=== PATIENT | female | born 1945 | race Caucasian/White ===

== ENCOUNTER 2017-03-14 07:49 | Day surgery (SDC) | payer MEDICARE ==
[~2017-03-14 07:49] MED LIST: Midazolam 1 MG/ML 2 ML SDV ONE; Propofol 200 MG/20 ML SDV ONE; fentaNYL 100 MCG/2 ML SDV ONE
[2017-03-14] MEDS ORDERED: Dextrose 5%-Lactated Ringers 1,000 ML IV SCH (08:00)
--- NOTE | 2017-03-15 15:12 | OR ---
DATE OF PROCEDURE: 03/14/2017 PREOPERATIVE DIAGNOSIS: History of colonic polyps. POSTOPERATIVE DIAGNOSIS: Normal colonoscopic examination. OPERATIVE PROCEDURE: Flexible colonoscopy. ANESTHESIA: IV sedation. INDICATION FOR PROCEDURE: This is a 71-year-old status post history of removal of some colonic adenomatous polyps in 2009, and she will follow up colonoscopy with biopsies and/or polypectomy as indicated. Potential risks including bleeding and perforation were discussed, and the patient wishes to proceed. DETAILS OF PROCEDURE: The patient was taken to the operating room and placed in a left lateral decubitus position. IV sedation was administered, after which the initial digital rectal exam was performed and was unremarkable. Colonoscope was passed into the rectum with retroflexion revealing uncomplicated hemorrhoidal columns. The scope was eventually passed to the cecum. The prep was fairly good with there being some liquid stool present to that level. No additional abnormalities were noted specifically, there was no diverticula, no areas of colitis and no polyps or other signs of neoplasia. The scope was then withdrawn. The above findings reconfirmed and the procedure was then concluded. The patient was taken to the recovery room in satisfactory condition. Given the history of colon polyps, the patient should have a repeat colonoscopy performed in 5 years. Luis A Day MD /[id number]
== END 2017-03-14 11:46 | disposition home or self-care (01) ==
LOC: JP.SDS 07:49
PROVIDERS: ATTEND Surgery
DX: Z12.11 Encounter for screening for malignant neoplasm of colon (principal); J44.9 Chronic obstructive pulmonary disease, unspecified; F32.9 Major depressive disorder, single episode, unspecified; E78.00 Pure hypercholesterolemia, unspecified; I10 Essential (primary) hypertension; Z86.010 Personal history of colon polyps; Z88.0 Allergy status to penicillin; Z88.1 Allergy status to other antibiotic agents; Z88.8 Allergy status to other drugs, medicaments and biological substances; Z87.891 Personal history of nicotine dependence; Z98.890 Other specified postprocedural states
CPT/HCPCS: G0105; J2250; J2704; J3010; J7042

== ENCOUNTER 2018-01-09 06:30 | Day surgery (SDC) | payer MEDICARE ==
[2018-01-09] MEDS ORDERED: Midazolam 1 MG/ML 2 ML SDV ONE (07:00)
[2018-01-09] MEDS ORDERED: Propofol 200 MG/20 ML SDV ONE (07:00)
[2018-01-09] MEDS ORDERED: fentaNYL 100 MCG/2 ML SDV ONE (07:00)
[2018-01-09] MEDS ORDERED: Dextrose 5%-Lactated Ringers 1,000 ML IV SCH (07:15)
[2018-01-09] MEDS ORDERED: Glycopyrrolate 0.2 MG/ML 2 ML SDV IVPUSH ONE (08:00)
--- NOTE | 2018-01-16 07:40 | OR ---
DATE OF PROCEDURE: 01/09/2018 PREOPERATIVE DIAGNOSIS: Probable gastroesophageal reflux disease. POSTOPERATIVE DIAGNOSES: 1. 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 2. Mild antral gastritis. OPERATIVE PROCEDURES: Upper GI endoscopy with biopsies of: 1. Antrum for CLOtest. 2. Esophagogastric junction for histologic evaluation. ANESTHESIA: IV sedation. INDICATION FOR PROCEDURE: This is a 72-year-old female presenting with longstanding gastroesophageal reflux symptoms. She has been on omeprazole 20 mg for 3 years. Recently, she has gone up to a b.i.d. dosing pattern, but is still having quite a bit of active reflux symptoms. Plan is to proceed with an upper GI endoscopy with biopsies as indicated. Potential risks including bleeding and perforation were discussed, and the patient wishes to proceed. DETAILS OF PROCEDURE: The patient was taken to the operating room and placed in a left lateral decubitus position. IV sedation was administered, after which the upper GI endoscope was passed orally through the length of the esophagus and into the stomach with retroflexion view of the fundus, and thereafter through the pyloric channel and into the junction of the third and fourth portions of the duodenum. Findings included a normal hypopharynx, larynx, upper esophageal sphincter, and esophageal body. As one approached the distal esophagus, the patient was noted to have a quite large hiatal hernia measuring around 5 cm. This was associated with active gastroesophageal reflux disease with there being 2 linear erosions extending up into the esophagus. 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 There was no stricturing, plaquing, or gross evidence of neoplasia per se. Within the stomach, there was some mild redness in the antrum, otherwise, the remainder of the gastric and duodenal exams were unremarkable. At this point, biopsies were obtained from the antrum to establish the patient's H. pylori status by means of CLOtest and then multiple biopsies from the area of esophagogastric junction targeting areas of the ulceration and columnar mucosa formation. Minimal bleeding from the biopsy sites was seen, and the procedure then concluded. The patient, at this point, has been on fairly maximal medical therapy, i.e. omeprazole 40 mg a day. We will see her back next Monday to discuss treatment options. The patient would appear to be a reasonable candidate for surgical antireflux procedure. Luis A Day MD /[id number]
== END 2018-01-09 10:40 | disposition home or self-care (01) ==
LOC: JP.SDS 06:30
PROVIDERS: ATTEND Surgery
DX: K21.0 Gastro-esophageal reflux disease with esophagitis (principal); K31.89 Other diseases of stomach and duodenum; K44.9 Diaphragmatic hernia without obstruction or gangrene; I10 Essential (primary) hypertension; J44.9 Chronic obstructive pulmonary disease, unspecified; E66.9 Obesity, unspecified; E78.5 Hyperlipidemia, unspecified; F32.9 Major depressive disorder, single episode, unspecified
CPT/HCPCS: 43239; 87081; 88305; J2250; J2704; J3010; J3490; J7042

== ENCOUNTER 2019-12-04 13:46 | Inpatient (IN) | payer MEDICARE ==
--- NOTE | 2019-12-04 14:02 | EDM.PDOC ---
ED HPI GENERAL MEDICAL PROBLEM - General Chief Complaint: General Stated Complaint: FALL VIA [place]TH Time Seen by Provider: 12/04/19 14:02 Source of Information: Reports: Patient, EMS, Family History Limitations: Reports: No Limitations - History of Present Illness INITIAL COMMENTS - FREE TEXT/NARRATIVE: [place] a [place] about 1/2 hour. She began to feel sob. She has slight rt sided pleurtic chest pain. She is feeling much better now. She had surgery for a hiatal hernia 2-3 weeks ago. She has been very tired out since that time. Onset: Today, Sudden Duration: Hour(s): Location: Reports: Chest, Other (pt is feeling liteheaded. ) Associated Symptoms: Reports: Chest Pain, Shortness of Breath, Syncope, Weakness - Related Data Allergies Allergy/AdvReac Type Severity Reaction Status Date / Time amoxicillin Allergy Rash Verified 12/04/19 13:56 niacin Allergy Swelling Verified 12/04/19 13:56 penicillin V Allergy Itching Verified 12/04/19 13:56 Home Meds: Home Meds HCTZ/Triamterene [Maxzide 25-37.5 MG] 1 each PO DAILY 03/10/17 [History] Multivitamin with Minerals [Multiple Vitamin] 1 tab PO DAILY 03/10/17 [History] Nicotine Polacrilex [Nicotine Gum] 2 mg BC ASDIRECTED PRN 03/10/17 [History] atorvaSTATin [Lipitor] 20 mg PO DAILY 03/10/17 [History] amLODIPine [Norvasc] 2.5 mg PO DAILY 01/05/18 [History] Budesonide [Pulmicort] 1 inh INH BID 12/04/19 [History] Ipratropium/Albuterol Sulfate [Iprat-Albut 0.5-3(2.5) mg/3 ml] 3 ml INH Q4H PRN 12/04/19 [History] Past Medical History HEENT History: Reports: Allergic Rhinitis, Impaired Vision Cardiovascular History: Reports: High Cholesterol, Hypertension Respiratory History: Reports: COPD Gastrointestinal History: Reports: Colon Polyp, GERD [employer] History: Reports: Musculoskeletal History: Reports: Fracture, Osteoarthritis Neurological History: Reports: Migraines Psychiatric History: Reports: Anxiety, Depression, Mood Swings, Panic Attack Endocrine/Metabolic History: Reports: Obesity/BMI 30+ - Infectious Disease History Infectious Disease History: Reports: Chicken Pox, Measles, Mumps - Past Surgical History HEENT Surgical History: Reports: Tonsillectomy, Other (See Below) Other HEENT Surgeries/Procedures: eye surgery as a child Cardiovascular Surgical History: Reports: None Respiratory Surgical History: Reports: None GI Surgical History: Reports: Colonoscopy, Polypectomy Neurological Surgical History: Reports: None Musculoskeletal Surgical History: Reports: None Social & Family History - Family History Family Medical History: Noncontributory - Caffeine Use Caffeine Use: Reports: Coffee ED ROS GENERAL - Review of Systems Review Of Systems: See Below Constitutional: Reports: Weakness HEENT: Reports: No Symptoms Respiratory: Reports: Shortness of Breath, Cough Cardiovascular: Reports: Other (pleuritic chest pain on the rt. ) Endocrine: Reports: No Symptoms GI/Abdominal: Reports: No Symptoms : Reports: No Symptoms Musculoskeletal: Reports: No Symptoms Skin: Reports: No Symptoms Neurological: Reports: Syncope Psychiatric: Reports: Anxiety ED EXAM, GENERAL - Physical Exam Exam: See Below Free Text/Narrative:: pt arrived after having a syncopal episode at the [facility]. She felt warm and got lite headed. She passed out and hit the back of her head. She is alert and seemes to be well mentally at this point. She states prior to passing out she felt very sob snd she had some pain with deep breathing on the rt. Exam Limited By: No Limitations General Appearance: Alert, Anxious, Mild Distress, Other (pt is having a rapid heart beat. ) Ears: Normal TMs Nose: Normal Inspection Throat/Mouth: Normal Inspection Head: Atraumatic Neck: Normal Inspection Respiratory/Chest: Other Cardiovascular: Regular Rate, Rhythm GI/Abdominal: Soft, Non-Tender (Female) Exam: Deferred Rectal (Female) Exam: Deferred Back Exam: Normal Inspection Extremities: Other (mild tenderness in the rt leg posteriorly behind the knee. ) Neurological: Alert, Oriented, Normal Cognition Psychiatric: Normal Affect Course - Vital Signs Last Recorded V/S: Last Vital Signs Temp 36.2 C 12/04/19 14:00 Pulse 108 H 12/04/19 17:12 Resp 16 12/04/19 17:12 BP 117/70 12/04/19 17:12 Pulse Ox 98 12/04/19 17:12 - Orders/Labs/Meds Orders: Active Orders 24 hr Category Date Time Status EKG Documentation Completion [RC] ASDIRECTED Care 12/04/19 14:02 Active Chest 1V Frontal [CR] Stat Exams 12/04/19 14:00 Taken Heparin Sodium/D5W [Heparin 25,000 Units in D5W 500 ML] Med 12/04/19 17:15 Active 25,000 units in 500 ml IV TITRATE Iopamidol [Isovue-370 (76%)] Med 12/04/19 15:15 Active 64 ml IV . DIRECTED Sodium Chloride 0.9% [Normal Saline] 1,000 ml Med 12/04/19 14:15 Active IV ASDIRECTED Sodium Chloride 0.9% [Normal Saline] 89 ml Med 12/04/19 15:15 Active IV ASDIRECTED EKG 12 Lead [EK] Routine Ther 12/04/19 14:02 Ordered Medication Orders Sodium Chloride (Normal Saline) 1,000 mls @ 999 mls/hr IV ASDIRECTED [facility] Last Admin: 12/04/19 14:23 Dose: 999 mls/hr Documented by: VI Sodium Chloride (Normal Saline) 89 mls @ 3 mls/sec IV ASDIRECTED [facility] Last Admin: 12/04/19 15:52 Dose: 3 mls/sec Documented by: Admin: 12/04/19 15:51 Dose: 3 mls/sec Documented by: MARIBEL Heparin Sodium/Dextrose (Heparin 25,000 Units In D5w 500 Ml) 25,000 units in 500 mls @ 0 mls/hr IV TITRATE RAMANA; Protocol Iopamidol (Isovue-370 (76%)) 64 ml IV . DIRECTED [facility] Last Admin: 12/04/19 15:51 Dose: 64 ml Documented by: MARIBEL Labs: Laboratory Tests 12/04/19 12/04/19 12/04/19 Range/Units 14:10 14:23 14:23 WBC 12.1 H (4.5-11.0) K/uL RBC 4.54 (3.30-5.50) M/uL Hgb 13.4 (12.0-15.0) g/dL Hct 42.4 (36.0-48.0) % MCV 93 (80-98) fL MCH 30 (27-31) pg MCHC 32 (32-36) % Plt Count 284 (150-400) K/uL Neut % (Auto) 72 H (36-66) % Lymph % (Auto) 16 L (24-44) % Dougherty % (Auto) 10 H (2-6) % Eos % (Auto) 1 L (2-4) % Baso % (Auto) 0 (0-1) % APTT 27.8 (27.0-36.0) sec D-Dimer, Quantitative > 5000 H (0.0-400.0) ng/mL Sodium (140-148) mmol/L Potassium (3.6-5.2) mmol/L Chloride (100-108) mmol/L Carbon Dioxide (21-32) mmol/L Anion Gap (5.0-14.0) mmol/L BUN (7-18) mg/dL Creatinine (0.6-1.0) mg/dL Est Cr Clr Drug Dosing mL/min Estimated GFR (MDRD) (>60) Glucose (74-106) mg/dL Calcium (8.5-10.1) mg/dL Total Bilirubin (0.2-1.0) mg/dL AST (15-37) U/L ALT (12-78) U/L Alkaline Phosphatase (46-116) U/L Troponin I (0.000-0.056) ng/mL Total Protein (6.4-8.2) g/dL Albumin (3.4-5.0) g/dL Globulin (2.3-3.5) g/dL Albumin/Globulin Ratio (1.2-2.2) Urine Color (YELLOW) Urine Appearance (CLEAR) Urine pH (5.0-8.0) Ur Specific [place] (1.008-1.030) Urine Protein (NEGATIVE) mg/dL Urine Glucose (UA) (NEGATIVE) mg/dL Urine Ketones (NEGATIVE) mg/dL Urine Occult Blood (NEGATIVE) Urine Nitrite (NEGATIVE) Urine Bilirubin (NEGATIVE) Urine Urobilinogen (0.2-1.0) EU/dL Ur Leukocyte Esterase (NEGATIVE) Urine RBC (0-5) Urine WBC (0-5) Ur Epithelial Cells Urine Bacteria 12/04/19 12/04/19 12/04/19 Range/Units 14:23 14:23 15:22 WBC (4.5-11.0) K/uL RBC (3.30-5.50) M/uL Hgb (12.0-15.0) g/dL Hct (36.0-48.0) % MCV (80-98) fL MCH (27-31) pg MCHC (32-36) % Plt Count (150-400) K/uL Neut % (Auto) (36-66) % Lymph % (Auto) (24-44) % Dougherty % (Auto) (2-6) % Eos % (Auto) (2-4) % Baso % (Auto) (0-1) % APTT (27.0-36.0) sec D-Dimer, Quantitative (0.0-400.0) ng/mL Sodium 137 L (140-148) mmol/L Potassium 3.6 (3.6-5.2) mmol/L Chloride 100 (100-108) mmol/L Carbon Dioxide 29 (21-32) mmol/L Anion Gap 11.6 (5.0-14.0) mmol/L BUN 20 H (7-18) mg/dL Creatinine 1.1 H (0.6-1.0) mg/dL Est Cr Clr Drug Dosing 36.02 mL/min Estimated GFR (MDRD) 49 L (>60) Glucose 116 H (74-106) mg/dL Calcium 8.9 (8.5-10.1) mg/dL Total Bilirubin 0.3 (0.2-1.0) mg/dL AST 38 H (15-37) U/L ALT 59 (12-78) U/L Alkaline Phosphatase 172 H (46-116) U/L Troponin I 0.519 H* (0.000-0.056) ng/mL Total Protein 7.5 (6.4-8.2) g/dL Albumin 3.2 L (3.4-5.0) g/dL Globulin 4.3 H (2.3-3.5) g/dL Albumin/Globulin Ratio 0.7 L (1.2-2.2) Urine Color Yellow (YELLOW) Urine Appearance Clear (CLEAR) Urine pH 7.0 (5.0-8.0) Ur Specific [place] 1.020 (1.008-1.030) Urine Protein Negative (NEGATIVE) mg/dL Urine Glucose (UA) Negative (NEGATIVE) mg/dL Urine Ketones Negative (NEGATIVE) mg/dL Urine Occult Blood Negative (NEGATIVE) Urine Nitrite Negative (NEGATIVE) Urine Bilirubin Negative (NEGATIVE) Urine Urobilinogen 0.2 (0.2-1.0) EU/dL Ur Leukocyte Esterase Negative (NEGATIVE) Urine RBC Not seen (0-5) Urine WBC Not seen (0-5) Ur Epithelial Cells Rare Urine Bacteria Not seen Meds: Medications Generic Name Dose Route Start Last Admin Trade Name Freq PRN Reason Stop Dose Admin Sodium Chloride 1,000 mls @ 999 mls/hr 12/04/19 14:15 12/04/19 14:23 Normal Saline IV 999 mls/hr ASDIRECTED RAMANA Administration Sodium Chloride 89 mls @ 3 mls/sec 12/04/19 15:15 12/04/19 15:52 Normal Saline IV 3 mls/sec ASDIRECTED RAMANA Administration Heparin Sodium/Dextrose 25,000 units in 500 mls @ 0 mls/hr 12/04/19 17:15 Heparin 25,000 Units In D5w 500 Ml IV TITRATE RAMANA Protocol KVO Iopamidol 64 ml 12/04/19 15:15 12/04/19 15:51 Isovue-370 (76%) IV 64 ml . DIRECTED RAMANA Administration Discontinued Medications Generic Name Dose Route Start Last Admin Trade Name Freq PRN Reason Stop Dose Admin Heparin Sodium (Porcine) 5,000 units 12/04/19 16:59 12/04/19 17:14 Heparin Sodium IVPUSH 12/04/19 17:00 5,000 units ONETIME ONE Administration Sodium Chloride 10 ml 12/04/19 15:08 12/04/19 15:51 Saline Flush FLUSH 12/04/19 15:09 10 ml ONETIME ONE Administration - Re-Assessments/Exams Free Text/Narrative Re-Assessment/Exam: 12/04/19 16:51 pt arrived with a history of having a syncopal episode at home and she hit the back of her head. She has been alert and appropiate since that time. She has been sob and has had some mld chest opain on the rt when she takes a deep breath. She has o2 sats of 93-95. She had a normal ekg except she has been tacy with a heart rate in the 120 range-- sinus. She had a angio of the chest which showed clots in both main coronary arteries and a saddle embolus. She has been stable. 07/08/20 16:54 Her heart rate has now come down to 108. She has no further pain or feeling of sob. Her trop was elevated to greater than .5. Pulmonlogy in [place] was consulted at 5 pm as to whether she should be transfered or cared for locally. A heparin drip was started. 12/04/19 17:20 Dr Matson felt that the pt could be monitored here since she has been very stable. The case was discussed with Dr Alejo. Heparin was started. Departure - Departure Time of Disposition: 17:21 Disposition: Admitted As Inpatient 67 Condition: Fair Clinical Impression: Pulmonary embolism, Saddle embolus - Discharge Information Referrals: PCP,None [Primary Care Provider] - Forms: ED Department Discharge Care Plan Goals: admit to Dr Alejo Sepsis Event Note (ED) - Focused Exam Vital Signs: Vital Signs Temp Pulse Resp BP Pulse Ox 12/04/19 17:12 108 H 16 117/70 98 12/04/19 16:22 105 H 18 124/59 L 96 12/04/19 15:50 108 H 12 130/78 92 L 12/04/19 14:47 111 H 21 H 130/78 94 L 12/04/19 14:00 36.2 C 121 H 20 121/61 94 L - My Orders Last 24 Hours: My Active Orders 12/04/19 14:00 Chest 1V Frontal [CR] Stat 12/04/19 14:02 EKG Documentation Completion [RC] ASDIRECTED EKG 12 Lead [EK] Routine 12/04/19 14:15 Sodium Chloride 0.9% [Normal Saline] 1,000 ml IV ASDIRECTED 12/04/19 15:15 Iopamidol [Isovue-370 (76%)] 64 ml IV . DIRECTED Sodium Chloride 0.9% [Normal Saline] 89 ml IV ASDIRECTED - Assessment/Plan Last 24 Hours: My Active Orders 12/04/19 14:00 Chest 1V Frontal [CR] Stat 12/04/19 14:02 EKG Documentation Completion [RC] ASDIRECTED EKG 12 Lead [EK] Routine 12/04/19 14:15 Sodium Chloride 0.9% [Normal Saline] 1,000 ml IV ASDIRECTED 12/04/19 15:15 Iopamidol [Isovue-370 (76%)] 64 ml IV . DIRECTED Sodium Chloride 0.9% [Normal Saline] 89 ml IV ASDIRECTED
[2019-12-04] MEDS ORDERED: Sodium Chloride 0.9% 1,000 ML IV SCH (14:15)
[2019-12-04] MEDS ORDERED: Sodium Chloride 0.9% 10 ML Syringe FLUSH ONE (15:08)
[2019-12-04] MEDS ORDERED: Iopamidol 755 Mg/ML 100 ML Bottle IV SCH (15:15)
--- NOTE | 2019-12-04 16:49 | CRLCT ---
INDICATION: Shortness of breath and elevated D-dimer. COMPARISON: Chest radiograph 12/04/2019. TECHNIQUE: CTA of the chest with 64 cc of Isovue 370 IV contrast. Coronal and sagittal reconstructions. 3D post processing was performed. FINDINGS: Normal heart size conventional 3 vessel aortic arch. Normal caliber thoracic aorta and central pulmonary arteries. Coronary artery and aortic vascular calcifications. No pericardial effusion. No thoracic lymphadenopathy. There are large pulmonary emboli within the main pulmonary arteries bilaterally which extend into the segmental and subsegmental pulmonary artery branches of all lobes. There is also a thin saddle embolus straddling the pulmonary arteries (series 4, image 45). There is flattening of the interventricular septum and mild enlargement of the right ventricle. The artery/LV ratio measures 1.1 compatible with right heart strain. No focal consolidation, pleural effusion, or pneumothorax. Mild left basilar atelectasis. No evidence of a developing pulmonary infarct. 2 mm noncalcified pulmonary nodule in the anterior right upper lobe (series 5, image 25). 3 mm noncalcified pulmonary nodule in the anterior right middle lobe (image 70). The visualized thyroid gland is normal in appearance. Partially visualized somewhat ill-defined 2.7 x 3.1 cm low-attenuation lesion in the left kidney (series 4, image 140). Degenerative changes of the spine. IMPRESSION: 1. Positive for acute pulmonary embolism. There large bilateral pulmonary emboli within the main pulmonary arteries extending into the segmental and subsegmental pulmonary artery branches of all lobes. There is also a thin saddle embolus. Findings discussed with nurse practitioner student Veronica Smith at 4:43 p.m. on 12/04/2019 who will relay the results to the ordering provider Marilyn Fernandez. 2. There is evidence of right heart strain. RV/LV ratio measures 1.1. 3. No developing pulmonary infarcts. 4. Few small noncalcified pulmonary nodules measuring up to 3 mm. Please see follow-up guidelines below. 5. Partially visualized 2.7 x 3.1 cm low-attenuation lesion in the left kidney is indeterminate. Recommend further evaluation with renal ultrasound to exclude a solid mass. [employer] GUIDELINES - SOLID NODULES: MULTIPLE LOW RISK - nodule less than 6 mm: No routine follow-up. - nodule 6-8 mm: CT at 3-6 months, then consider CT at 18-24 months. - nodule greater than 8 mm: CT at 3-6 months, then consider CT at 18-24 months. MULTIPLE HIGH RISK - nodule less than 6 mm: Optional CT at 12 months. - nodule 6-8 mm: CT at 3-6 months, then at 18-24 months. - nodule greater than 8 mm: CT at 3-6 months, then at 18-24 months. Please note that all CT scans at this facility use dose modulation, iterative reconstruction, and/or weight-based dosing when appropriate to reduce radiation dose to as low as reasonably achievable. Dictated by Estefanía Mcallister MD @ Dec 04 2019 4:32PM Signed by Dr. Estefanía Mcallister @ Dec 04 2019 4:49PM
[2019-12-04] MEDS ORDERED: Heparin Sodium 5,000 Units/ML Vial IVPUSH ONE (16:59)
[2019-12-04] MEDS: Heparin Sodium/D5W 25,000 UNITS/500 ML BAG IV SCH (17:21)
--- NOTE | 2019-12-04 17:23 | PCM.HP.2 ---
H&P History of Present Illness - General Date of Service: 12/04/19 Admit Problem/Dx: Admission Diagnosis/Problem Admission Diagnosis/Problem Pulmonary embolism Source of Information: Patient, Family, Old Records, Provider, RN Notes Reviewed History Limitations: Reports: No Limitations - History of Present Illness Initial Comments - Free Text/Narative: Ms. Christine is a 74-year-old woman who was admitted through the emergency department with weakness, syncope, shortness of breath, secondary to bilateral pulmonary emboli. She underwent surgery approximately 3 weeks ago for reflux with a Billy fundoplication. Over the last week and a half she is noted progressive symptoms of shortness of breath. Today she experienced some symptoms of chest pain associated with shortness of breath and lightheadedness, with a syncopal episode. CT scan shows a large amount of clot both lungs, involving both pulmonary arteries and with a saddle embolism appearance. She has a mild resting tachycardia, otherwise she has been hemodynamically stable and oxygenating well on room air. Findings were reviewed with mechanic general operational test on- call who without felt that she could be anticoagulated and safely kept here for the time being. She denies any previous history of deep vein thrombosis or pulmonary emboli. - Related Data Allergies/Adverse Reactions: Allergies Allergy/AdvReac Type Severity Reaction Status Date / Time amoxicillin Allergy Rash Verified 12/04/19 13:56 niacin Allergy Swelling Verified 12/04/19 13:56 penicillin V Allergy Itching Verified 12/04/19 13:56 Home Medications: Home Meds HCTZ/Triamterene [Maxzide 25-37.5 MG] 1 each PO DAILY 03/10/17 [History] Multivitamin with Minerals [Multiple Vitamin] 1 tab PO DAILY 03/10/17 [History] Nicotine Polacrilex [Nicotine Gum] 2 mg BC ASDIRECTED PRN 03/10/17 [History] atorvaSTATin [Lipitor] 20 mg PO DAILY 03/10/17 [History] amLODIPine [Norvasc] 2.5 mg PO DAILY 01/05/18 [History] Budesonide [Pulmicort] 1 inh INH BID 12/04/19 [History] Ipratropium/Albuterol Sulfate [Iprat-Albut 0.5-3(2.5) mg/3 ml] 3 ml INH Q4H PRN 12/04/19 [History] Past Medical History HEENT History: Reports: Allergic Rhinitis, Impaired Vision Cardiovascular History: Reports: High Cholesterol, Hypertension Respiratory History: Reports: COPD Gastrointestinal History: Reports: Colon Polyp, GERD HAND TWISTER History: Reports: Musculoskeletal History: Reports: Fracture, Osteoarthritis Neurological History: Reports: Migraines Psychiatric History: Reports: Anxiety, Depression, Mood Swings, Panic Attack Endocrine/Metabolic History: Reports: Obesity/BMI 30+ - Infectious Disease History Infectious Disease History: Reports: Chicken Pox, Measles, Mumps - Past Surgical History HEENT Surgical History: Reports: Tonsillectomy, Other (See Below) Other HEENT Surgeries/Procedures: eye surgery as a child Cardiovascular Surgical History: Reports: None Respiratory Surgical History: Reports: None GI Surgical History: Reports: Colonoscopy, Polypectomy Neurological Surgical History: Reports: None Musculoskeletal Surgical History: Reports: None Social & Family History - Family History Family Medical History: Noncontributory - Tobacco Use Smoking Status *Q: Former Smoker Used Tobacco, but Quit: Yes Month/Year Tobacco Last Used: 5 - Caffeine Use Caffeine Use: Reports: Coffee H&P Review of Systems - Review of Systems: Review Of Systems: See Below General: Reports: Weakness, Fatigue. Denies: Fever, Chills HEENT: Reports: No Symptoms Pulmonary: Reports: Shortness of Breath. Denies: Wheezing, Pleuritic Chest Pain, Cough, Sputum, Hemoptysis Cardiovascular: Reports: Dyspnea on Exertion, Lightheadedness, Syncope. Denies: Chest Pain, Palpitations, Orthopnea, PND, Edema Gastrointestinal: Reports: No Symptoms Genitourinary: Reports: No Symptoms Musculoskeletal: Reports: No Symptoms Skin: Reports: No Symptoms Psychiatric: Reports: No Symptoms Neurological: Reports: No Symptoms Hematologic/Lymphatic: Reports: No Symptoms Immunologic: Reports: No Symptoms Exam - Exam Exam: See Below - Vital Signs Vital Signs: Last Vital Signs Temp 97.1 F 12/04/19 14:00 Pulse 108 H 12/04/19 17:12 Resp 16 12/04/19 17:12 BP 117/70 12/04/19 17:12 Pulse Ox 98 12/04/19 17:12 Weight: 166 lb - Exam Quality Assessment: DVT Prophylaxis General: Alert, Oriented, Cooperative, Moderate Distress HEENT: Conjunctiva Clear, Hearing Intact, Mucosa Moist & [place], Normal Nasal Septum, Posterior Pharynx Clear, Pupils Equal Neck: Supple, Trachea Midline, +2 Carotid Pulse wo Bruit Lungs: Clear to Auscultation, Normal Respiratory Effort, Decreased Breath Sounds Cardiovascular: Regular Rate, Normal S1, Normal S2, Tachycardia. No: Systolic Murmur, Diastolic Murmur GI/Abdominal Exam: Soft, Non-Tender, No Organomegaly, No Distention Back Exam: Normal Inspection, Full Range of Motion Extremities: Non-Tender, No Pedal Edema Skin: Warm, Dry, Intact Neurological: Cranial Nerves Intact, Strength Equal Bilateral, Normal Speech, Normal Tone, Sensation Intact. No: Focal Deficit Neuro Extensive - Mental Status: Alert, Oriented x3, Normal Mood/Affect, Normal Cognition, Memory Intact - Patient Data Lab Results Last 24 hrs: Laboratory Results - last 24 hr 12/04/19 12/04/19 12/04/19 Range/Units 14:10 14:23 14:23 WBC 12.1 H (4.5-11.0) K/uL RBC 4.54 (3.30-5.50) M/uL Hgb 13.4 (12.0-15.0) g/dL Hct 42.4 (36.0-48.0) % MCV 93 (80-98) fL MCH 30 (27-31) pg MCHC 32 (32-36) % Plt Count 284 (150-400) K/uL Neut % (Auto) 72 H (36-66) % Lymph % (Auto) 16 L (24-44) % [place] % (Auto) 10 H (2-6) % Eos % (Auto) 1 L (2-4) % Baso % (Auto) 0 (0-1) % APTT 27.8 (27.0-36.0) sec D-Dimer, Quantitative > 5000 H (0.0-400.0) ng/mL Sodium (140-148) mmol/L Potassium (3.6-5.2) mmol/L Chloride (100-108) mmol/L Carbon Dioxide (21-32) mmol/L Anion Gap (5.0-14.0) mmol/L BUN (7-18) mg/dL Creatinine (0.6-1.0) mg/dL Est Cr Clr Drug Dosing mL/min Estimated GFR (MDRD) (>60) Glucose (74-106) mg/dL Calcium (8.5-10.1) mg/dL Total Bilirubin (0.2-1.0) mg/dL AST (15-37) U/L ALT (12-78) U/L Alkaline Phosphatase (46-116) U/L Troponin I (0.000-0.056) ng/mL Total Protein (6.4-8.2) g/dL Albumin (3.4-5.0) g/dL Globulin (2.3-3.5) g/dL Albumin/Globulin Ratio (1.2-2.2) Urine Color (YELLOW) Urine Appearance (CLEAR) Urine pH (5.0-8.0) Ur Specific [place] (1.008-1.030) Urine Protein (NEGATIVE) mg/dL Urine Glucose (UA) (NEGATIVE) mg/dL Urine Ketones (NEGATIVE) mg/dL Urine Occult Blood (NEGATIVE) Urine Nitrite (NEGATIVE) Urine Bilirubin (NEGATIVE) Urine Urobilinogen (0.2-1.0) EU/dL Ur Leukocyte Esterase (NEGATIVE) Urine RBC (0-5) Urine WBC (0-5) Ur Epithelial Cells Urine Bacteria 12/04/19 12/04/19 12/04/19 Range/Units 14:23 14:23 15:22 WBC (4.5-11.0) K/uL RBC (3.30-5.50) M/uL Hgb (12.0-15.0) g/dL Hct (36.0-48.0) % MCV (80-98) fL MCH (27-31) pg MCHC (32-36) % Plt Count (150-400) K/uL Neut % (Auto) (36-66) % Lymph % (Auto) (24-44) % [place] % (Auto) (2-6) % Eos % (Auto) (2-4) % Baso % (Auto) (0-1) % APTT (27.0-36.0) sec D-Dimer, Quantitative (0.0-400.0) ng/mL Sodium 137 L (140-148) mmol/L Potassium 3.6 (3.6-5.2) mmol/L Chloride 100 (100-108) mmol/L Carbon Dioxide 29 (21-32) mmol/L Anion Gap 11.6 (5.0-14.0) mmol/L BUN 20 H (7-18) mg/dL Creatinine 1.1 H (0.6-1.0) mg/dL Est Cr Clr Drug Dosing 36.02 mL/min Estimated GFR (MDRD) 49 L (>60) Glucose 116 H (74-106) mg/dL Calcium 8.9 (8.5-10.1) mg/dL Total Bilirubin 0.3 (0.2-1.0) mg/dL AST 38 H (15-37) U/L ALT 59 (12-78) U/L Alkaline Phosphatase 172 H (46-116) U/L Troponin I 0.519 H* (0.000-0.056) ng/mL Total Protein 7.5 (6.4-8.2) g/dL Albumin 3.2 L (3.4-5.0) g/dL Globulin 4.3 H (2.3-3.5) g/dL Albumin/Globulin Ratio 0.7 L (1.2-2.2) Urine Color Yellow (YELLOW) Urine Appearance Clear (CLEAR) Urine pH 7.0 (5.0-8.0) Ur Specific [place] 1.020 (1.008-1.030) Urine Protein Negative (NEGATIVE) mg/dL Urine Glucose (UA) Negative (NEGATIVE) mg/dL Urine Ketones Negative (NEGATIVE) mg/dL Urine Occult Blood Negative (NEGATIVE) Urine Nitrite Negative (NEGATIVE) Urine Bilirubin Negative (NEGATIVE) Urine Urobilinogen 0.2 (0.2-1.0) EU/dL Ur Leukocyte Esterase Negative (NEGATIVE) Urine RBC Not seen (0-5) Urine WBC Not seen (0-5) Ur Epithelial Cells Rare Urine Bacteria Not seen Result Diagrams: 12/04/19 14:23 12/04/19 14:23 Sepsis Event Note - Evaluation Sepsis Screening Result: No Definite Risk - Focused Exam Vital Signs: Vital Signs Temp Pulse Resp BP Pulse Ox 12/04/19 17:12 108 H 16 117/70 98 12/04/19 16:22 105 H 18 124/59 L 96 12/04/19 15:50 108 H 12 130/78 92 L 12/04/19 14:47 111 H 21 H 130/78 94 L 12/04/19 14:00 97.1 F 121 H 20 121/61 94 L Date Exam was Performed: 12/04/19 Time Exam was Performed: 17:52 *Q Meaningful Use (ADM) - VTE Risk Assess *Q Each Risk Factor Represents 1 Point: Obesity ( BMI > 25 kg/m2), Abnormal Pulmonary Function (COPD) Total Score 1 Point Risk Factors: 2 Each Risk Factor Represents 2 Points: Age 60 - 74 Years Total Score 2 Point Risk Factors: 2 Each Risk Factor Represents 3 Points: None Total Score 3 Point Risk Factors: 0 Each Risk Factor Represents 5 Points: None Total Score 5 Point Risk Factors: 0 Venous Thromboembolism Risk Factor Score *Q: 4 Problem List Initiated/Reviewed/Updated: Yes Orders Last 24hrs: Active Orders 24 hr Category Date Time Status Patient Status Manage Transfer [TRANSFER] Routine ADT 12/04/19 17:07 Ordered EKG Documentation Completion [RC] ASDIRECTED Care 12/04/19 14:02 Active Chest 1V Frontal [CR] Stat Exams 12/04/19 14:00 Taken Heparin Sodium/D5W [Heparin 25,000 Units in D5W 500 ML] Med 12/04/19 17:15 Active 25,000 units in 500 ml IV TITRATE Iopamidol [Isovue-370 (76%)] Med 12/04/19 15:15 Active 64 ml IV . DIRECTED Sodium Chloride 0.9% [Normal Saline] 1,000 ml Med 12/04/19 14:15 Active IV ASDIRECTED Sodium Chloride 0.9% [Normal Saline] 89 ml Med 12/04/19 15:15 Active IV ASDIRECTED Resuscitation Status Routine Resus Stat 12/04/19 17:18 Ordered EKG 12 Lead [EK] Routine Ther 12/04/19 14:02 Ordered Medication Orders Sodium Chloride (Normal Saline) 1,000 mls @ 999 mls/hr IV ASDIRECTED RAMANA Last Admin: 12/04/19 14:23 Dose: 999 mls/hr Documented by: VI Sodium Chloride (Normal Saline) 89 mls @ 3 mls/sec IV ASDIRECTED RAMANA Last Admin: 12/04/19 15:52 Dose: 3 mls/sec Documented by: Admin: 12/04/19 15:51 Dose: 3 mls/sec Documented by: MARIBEL Heparin Sodium/Dextrose (Heparin 25,000 Units In D5w 500 Ml) 25,000 units in 500 mls @ 0 mls/hr IV TITRATE RAMANA; Protocol Iopamidol (Isovue-370 (76%)) 64 ml IV . DIRECTED RAMANA Last Admin: 12/04/19 15:51 Dose: 64 ml Documented by: MARIBEL Assessment/Plan Comment:: ASSESSMENT AND PLAN BILATERAL PULMONARY EMBOLI-mildly tachycardic, otherwise hemodynamically stable with good oxygenation. -IV fluids for hydration -IV heparin bolus and continuous infusion -Initiate warfarin in a.m. -Echocardiogram in the a.m. STATUS POST BILLY FUNDOPLICATION-otherwise stable and doing well concerning recent surgery COPD-no evidence of exacerbation, oxygenating well -Continue outpatient medications HYPERTENSION-current blood pressure adequate -Hold antihypertensive therapy MAINTENANCE ISSUES -DVT prophylaxis; current therapy with IV heparin should provide adequate DVT prophylaxis -GI prophylaxis; not indicated -Devi catheter; not indicated -Nutrition; 2 g sodium diet -Nicotine dependence; not required CODE STATUS-FULL CODE ADMISSION STATUS-patient will be admitted to inpatient status, expect at least a 2 night hospital stay for evaluation and management of problems as outlined above. At the time of this admission I do not reasonably expected evaluation an d management of this problem will require more than a 96 hour hospital stay. DISPOSITION-anticipate discharge to home after the hospital stay. PRIMARY CARE PROVIDER- - Mortality Measure Prognosis:: Good
[2019-12-04] MEDS ORDERED: Nicotine Polacrilex 2 MG Gum PO PRN (18:47)
[2019-12-04] MEDS ORDERED: Sodium Chloride 0.9% 10 ML Syringe FLUSH PRN (18:47)
[2019-12-04] MEDS ORDERED: Ondansetron 4 MG/2 ML SDV IV PRN (18:47)
[2019-12-04] MEDS ORDERED: oxyCODONE 5 MG Tab PO PRN (18:47)
[2019-12-04] MEDS ORDERED: Polyethylene Glycol 3350 Powder 17 GM Packet PO PRN (18:47)
[2019-12-04] MEDS ORDERED: Acetaminophen 325 MG Tab PO PRN (18:47)
[2019-12-04] MEDS: Sodium Chloride 0.9% 1,000 ML IV SCH (20:14)
[2019-12-04] MEDS: Albuterol/Ipratropium 3.0-0.5 MG/3 ML Neb Soln INH PRN (21:43)
[2019-12-04] MEDS: Budesonide 0.25 MG/2 ML Neb Susp INH SCH (21:46)
[2019-12-05] MEDS: Sodium Chloride 0.9% 1,000 ML IV SCH (04:11)
[2019-12-05] MEDS: Budesonide 0.25 MG/2 ML Neb Susp INH SCH ×2 (07:38→20:51)
--- NOTE | 2019-12-05 09:17 | PCM.PN ---
- General Info Date of Service: 12/05/19 Subjective Update: Ms. Christine has been stable since admission. During the night she did require some supplemental oxygen, heart rate remains modestly elevated especially with activity. Troponin level did peak at 1.7 likely secondary effect from cardiac involvement with her large PE. She has had no symptoms of chest pain or pressure since admission. Functional Status: Reports: Pain Controlled, Tolerating Diet, Urinating - Review of Systems General: Reports: Weakness, Fatigue. Denies: Fever, Chills Pulmonary: Reports: Shortness of Breath. Denies: Pleuritic Chest Pain, Cough, Sputum, Hemoptysis, Wheezing Cardiovascular: Reports: Dyspnea on Exertion. Denies: Chest Pain, Palpitations, Orthopnea, PND, Edema, Lightheadedness Gastrointestinal: Reports: No Symptoms - Patient Data Vitals - Most Recent: Last Vital Signs Temp 97.1 F 12/05/19 08:00 Pulse 101 H 12/05/19 08:00 Resp 16 12/05/19 08:00 BP 138/68 12/05/19 08:00 Pulse Ox 95 12/05/19 08:00 Weight - Most Recent: 171 lb 2 oz I&O - Last 24 Hours: Intake & Output 12/04/19 12/05/19 12/05/19 22:59 06:59 14:59 Intake Total 1407 240 Output Total 600 700 Balance -600 707 240 Lab Results Last 24 Hours: Laboratory Results - last 24 hr 12/04/19 12/04/19 12/04/19 Range/Units 14:10 14:23 14:23 WBC 12.1 H (4.5-11.0) K/uL RBC 4.54 (3.30-5.50) M/uL Hgb 13.4 (12.0-15.0) g/dL Hct 42.4 (36.0-48.0) % MCV 93 (80-98) fL MCH 30 (27-31) pg MCHC 32 (32-36) % Plt Count 284 (150-400) K/uL Neut % (Auto) 72 H (36-66) % Lymph % (Auto) 16 L (24-44) % [place] % (Auto) 10 H (2-6) % Eos % (Auto) 1 L (2-4) % Baso % (Auto) 0 (0-1) % Add Manual Diff Neutrophils % (Manual) (36-66) % Lymphocytes % (Manual) (24-44) % Monocytes % (Manual) (2-6) % Eosinophils % (Manual) (2-4) % PT (9.5-12.0) sec INR (0.80-1.20) APTT 27.8 (27.0-36.0) sec D-Dimer, Quantitative > 5000 H (0.0-400.0) ng/mL Sodium (140-148) mmol/L Potassium (3.6-5.2) mmol/L Chloride (100-108) mmol/L Carbon Dioxide (21-32) mmol/L Anion Gap (5.0-14.0) mmol/L BUN (7-18) mg/dL Creatinine (0.6-1.0) mg/dL Est Cr Clr Drug Dosing mL/min Estimated GFR (MDRD) (>60) Glucose (74-106) mg/dL Calcium (8.5-10.1) mg/dL Total Bilirubin (0.2-1.0) mg/dL AST (15-37) U/L ALT (12-78) U/L Alkaline Phosphatase (46-116) U/L Troponin I (0.000-0.056) ng/mL Total Protein (6.4-8.2) g/dL Albumin (3.4-5.0) g/dL Globulin (2.3-3.5) g/dL Albumin/Globulin Ratio (1.2-2.2) Urine Color (YELLOW) Urine Appearance (CLEAR) Urine pH (5.0-8.0) Ur Specific [place] (1.008-1.030) Urine Protein (NEGATIVE) mg/dL Urine Glucose (UA) (NEGATIVE) mg/dL Urine Ketones (NEGATIVE) mg/dL Urine Occult Blood (NEGATIVE) Urine Nitrite (NEGATIVE) Urine Bilirubin (NEGATIVE) Urine Urobilinogen (0.2-1.0) EU/dL Ur Leukocyte Esterase (NEGATIVE) Urine RBC (0-5) Urine WBC (0-5) Ur Epithelial Cells Urine Bacteria 12/04/19 12/04/19 12/04/19 Range/Units 14:23 14:23 15:22 WBC (4.5-11.0) K/uL RBC (3.30-5.50) M/uL Hgb (12.0-15.0) g/dL Hct (36.0-48.0) % MCV (80-98) fL MCH (27-31) pg MCHC (32-36) % Plt Count (150-400) K/uL Neut % (Auto) (36-66) % Lymph % (Auto) (24-44) % [place] % (Auto) (2-6) % Eos % (Auto) (2-4) % Baso % (Auto) (0-1) % Add Manual Diff Neutrophils % (Manual) (36-66) % Lymphocytes % (Manual) (24-44) % Monocytes % (Manual) (2-6) % Eosinophils % (Manual) (2-4) % PT (9.5-12.0) sec INR (0.80-1.20) APTT (27.0-36.0) sec D-Dimer, Quantitative (0.0-400.0) ng/mL Sodium 137 L (140-148) mmol/L Potassium 3.6 (3.6-5.2) mmol/L Chloride 100 (100-108) mmol/L Carbon Dioxide 29 (21-32) mmol/L Anion Gap 11.6 (5.0-14.0) mmol/L BUN 20 H (7-18) mg/dL Creatinine 1.1 H (0.6-1.0) mg/dL Est Cr Clr Drug Dosing 36.02 mL/min Estimated GFR (MDRD) 49 L (>60) Glucose 116 H (74-106) mg/dL Calcium 8.9 (8.5-10.1) mg/dL Total Bilirubin 0.3 (0.2-1.0) mg/dL AST 38 H (15-37) U/L ALT 59 (12-78) U/L Alkaline Phosphatase 172 H (46-116) U/L Troponin I 0.519 H* (0.000-0.056) ng/mL Total Protein 7.5 (6.4-8.2) g/dL Albumin 3.2 L (3.4-5.0) g/dL Globulin 4.3 H (2.3-3.5) g/dL Albumin/Globulin Ratio 0.7 L (1.2-2.2) Urine Color Yellow (YELLOW) Urine Appearance Clear (CLEAR) Urine pH 7.0 (5.0-8.0) Ur Specific [place] 1.020 (1.008-1.030) Urine Protein Negative (NEGATIVE) mg/dL Urine Glucose (UA) Negative (NEGATIVE) mg/dL Urine Ketones Negative (NEGATIVE) mg/dL Urine Occult Blood Negative (NEGATIVE) Urine Nitrite Negative (NEGATIVE) Urine Bilirubin Negative (NEGATIVE) Urine Urobilinogen 0.2 (0.2-1.0) EU/dL Ur Leukocyte Esterase Negative (NEGATIVE) Urine RBC Not seen (0-5) Urine WBC Not seen (0-5) Ur Epithelial Cells Rare Urine Bacteria Not seen 12/04/19 12/04/19 12/05/19 Range/Units 19:58 21:37 04:10 WBC 12.0 H (4.5-11.0) K/uL RBC 4.05 (3.30-5.50) M/uL Hgb 12.1 (12.0-15.0) g/dL Hct 38.7 (36.0-48.0) % MCV 96 (80-98) fL MCH 30 (27-31) pg MCHC 31 L (32-36) % Plt Count 238 (150-400) K/uL Neut % (Auto) (36-66) % Lymph % (Auto) (24-44) % [place] % (Auto) (2-6) % Eos % (Auto) (2-4) % Baso % (Auto) (0-1) % Add Manual Diff Yes Neutrophils % (Manual) 55 (36-66) % Lymphocytes % (Manual) 29 (24-44) % Monocytes % (Manual) 13 H (2-6) % Eosinophils % (Manual) 3 (2-4) % PT (9.5-12.0) sec INR (0.80-1.20) APTT 151.5 H* (27.0-36.0) sec D-Dimer, Quantitative (0.0-400.0) ng/mL Sodium (140-148) mmol/L Potassium (3.6-5.2) mmol/L Chloride (100-108) mmol/L Carbon Dioxide (21-32) mmol/L Anion Gap (5.0-14.0) mmol/L BUN (7-18) mg/dL Creatinine (0.6-1.0) mg/dL Est Cr Clr Drug Dosing mL/min Estimated GFR (MDRD) (>60) Glucose (74-106) mg/dL Calcium (8.5-10.1) mg/dL Total Bilirubin (0.2-1.0) mg/dL AST (15-37) U/L ALT (12-78) U/L Alkaline Phosphatase (46-116) U/L Troponin I 1.702 H* (0.000-0.056) ng/mL Total Protein (6.4-8.2) g/dL Albumin (3.4-5.0) g/dL Globulin (2.3-3.5) g/dL Albumin/Globulin Ratio (1.2-2.2) Urine Color (YELLOW) Urine Appearance (CLEAR) Urine pH (5.0-8.0) Ur Specific [place] (1.008-1.030) Urine Protein (NEGATIVE) mg/dL Urine Glucose (UA) (NEGATIVE) mg/dL Urine Ketones (NEGATIVE) mg/dL Urine Occult Blood (NEGATIVE) Urine Nitrite (NEGATIVE) Urine Bilirubin (NEGATIVE) Urine Urobilinogen (0.2-1.0) EU/dL Ur Leukocyte Esterase (NEGATIVE) Urine RBC (0-5) Urine WBC (0-5) Ur Epithelial Cells Urine Bacteria 12/05/19 12/05/19 12/05/19 Range/Units 04:10 04:10 04:10 WBC (4.5-11.0) K/uL RBC (3.30-5.50) M/uL Hgb (12.0-15.0) g/dL Hct (36.0-48.0) % MCV (80-98) fL MCH (27-31) pg MCHC (32-36) % Plt Count (150-400) K/uL Neut % (Auto) (36-66) % Lymph % (Auto) (24-44) % [place] % (Auto) (2-6) % Eos % (Auto) (2-4) % Baso % (Auto) (0-1) % Add Manual Diff Neutrophils % (Manual) (36-66) % Lymphocytes % (Manual) (24-44) % Monocytes % (Manual) (2-6) % Eosinophils % (Manual) (2-4) % PT 11.5 (9.5-12.0) sec INR 1.07 (0.80-1.20) APTT 56.9 H (27.0-36.0) sec D-Dimer, Quantitative (0.0-400.0) ng/mL Sodium 136 L (140-148) mmol/L Potassium 4.0 (3.6-5.2) mmol/L Chloride 105 (100-108) mmol/L Carbon Dioxide 19 L (21-32) mmol/L Anion Gap 16.0 H (5.0-14.0) mmol/L BUN 14 (7-18) mg/dL Creatinine 0.8 (0.6-1.0) mg/dL Est Cr Clr Drug Dosing 49.53 mL/min Estimated GFR (MDRD) > 60 (>60) Glucose 101 (74-106) mg/dL Calcium 8.1 L (8.5-10.1) mg/dL Total Bilirubin (0.2-1.0) mg/dL AST (15-37) U/L ALT (12-78) U/L Alkaline Phosphatase (46-116) U/L Troponin I 0.679 H* (0.000-0.056) ng/mL Total Protein (6.4-8.2) g/dL Albumin (3.4-5.0) g/dL Globulin (2.3-3.5) g/dL Albumin/Globulin Ratio (1.2-2.2) Urine Color (YELLOW) Urine Appearance (CLEAR) Urine pH (5.0-8.0) Ur Specific [place] (1.008-1.030) Urine Protein (NEGATIVE) mg/dL Urine Glucose (UA) (NEGATIVE) mg/dL Urine Ketones (NEGATIVE) mg/dL Urine Occult Blood (NEGATIVE) Urine Nitrite (NEGATIVE) Urine Bilirubin (NEGATIVE) Urine Urobilinogen (0.2-1.0) EU/dL Ur Leukocyte Esterase (NEGATIVE) Urine RBC (0-5) Urine WBC (0-5) Ur Epithelial Cells Urine Bacteria Med Orders - Current: Current Medications Acetaminophen (Tylenol) 650 mg PO Q4H PRN PRN Reason: Pain (Mild 1-3)/fever Albuterol/Ipratropium (Duoneb 3.0-0.5 Mg/3 Ml) 3 ml INH Q4H PRN PRN Reason: breathing Last Admin: 12/04/19 21:43 Dose: 3 ml Documented by: Atorvastatin Calcium (Lipitor) 20 mg PO DAILY RAMANA Budesonide (Pulmicort) 0.25 mg INH BIDRT RAMANA Last Admin: 12/05/19 07:38 Dose: 0.25 mg Documented by: Heparin Sodium/Dextrose (Heparin 25,000 Units In D5w 500 Ml) 25,000 units in 500 mls @ 0 mls/hr IV TITRATE RAMANA; Protocol Last Titration: 12/05/19 05:05 Dose: 23.3 ml/hr, 23.3 mls/hr Documented by: Nicotine Polacrilex (Nicorelief) 2 mg PO Q1H PRN PRN Reason: .smoking cessation Ondansetron HCl (Zofran) 4 mg IV Q4H PRN PRN Reason: Nausea/Vomiting Oxycodone HCl (Oxycodone) 5 mg PO Q4H PRN PRN Reason: Pain (moderate 4-6) Last Admin: 12/04/19 23:07 Dose: 5 mg Documented by: Polyethylene Glycol (Miralax) 17 gm PO DAILY PRN PRN Reason: Constipation Sodium Chloride (Saline Flush) 10 ml FLUSH ASDIRECTED PRN PRN Reason: Keep Vein Open Warfarin Sodium (Coumadin) 5 mg PO ONETIME ONE Stop: 12/05/19 10:01 Discontinued Medications Heparin Sodium (Porcine) (Heparin Sodium) 5,000 units IVPUSH ONETIME ONE Stop: 12/04/19 17:00 Last Admin: 12/04/19 17:14 Dose: 5,000 units Documented by: Sodium Chloride (Normal Saline) 1,000 mls @ 999 mls/hr IV ASDIRECTED RAMANA Last Admin: 12/04/19 14:23 Dose: 999 mls/hr Documented by: Sodium Chloride (Normal Saline) 89 mls @ 3 mls/sec IV ASDIRECTED RAMANA Last Admin: 12/04/19 15:52 Dose: 3 mls/sec Documented by: Sodium Chloride (Normal Saline) 1,000 mls @ 125 mls/hr IV ASDIRECTED RAMANA Last Admin: 12/05/19 04:11 Dose: 125 mls/hr Documented by: Iopamidol (Isovue-370 (76%)) 64 ml IV . DIRECTED RAMANA Last Admin: 12/04/19 15:51 Dose: 64 ml Documented by: Sodium Chloride (Saline Flush) 10 ml FLUSH ONETIME ONE Stop: 12/04/19 15:09 Last Admin: 12/04/19 15:51 Dose: 10 ml Documented by: - Exam Quality Assessment: Supplemental Oxygen, DVT Prophylaxis General: Alert, Oriented, Cooperative, Mild Distress Lungs: Clear to Auscultation, Normal Respiratory Effort Cardiovascular: Regular Rhythm, No Murmurs, Tachycardia GI/Abdominal Exam: Soft, Non-Tender, No Organomegaly, No Distention Extremities: Non-Tender, No Pedal Edema Sepsis Event Note - Evaluation Sepsis Screening Result: No Definite Risk - Focused Exam Vital Signs: Vital Signs Temp Pulse Resp BP Pulse Ox Pulse Ox 12/05/19 08:00 97.1 F 101 H 16 138/68 95 12/05/19 07:39 96 96 12/05/19 06:00 90 16 128/66 98 12/05/19 04:10 97.4 F 98 21 H 154/80 H 99 12/05/19 02:00 108 H 19 152/100 H 97 12/05/19 01:00 116 H 12 148/78 H 96 12/05/19 00:05 97.8 F 112 H 16 129/72 97 12/04/19 22:00 108 H 17 119/52 L 98 Date Exam was Performed: 12/05/19 Time Exam was Performed: 09:13 - Problem List Review Problem List Initiated/Reviewed/Updated: Yes - My Orders Last 24 Hours: My Active Orders 12/04/19 Dinner 2 Gram Sodium Diet [DIET] 12/04/19 17:15 Heparin Sodium/D5W [Heparin 25,000 Units in D5W 500 ML] 25,000 units in 500 ml IV TITRATE 12/04/19 17:18 Resuscitation Status Routine 12/04/19 18:47 Acetaminophen [Tylenol] 650 mg PO Q4H PRN Albuterol/Ipratropium [DuoNeb 3.0-0.5 MG/3 ML] 3 ml INH Q4H PRN Nicotine Polacrilex [Nicorelief] 2 mg PO Q1H PRN Ondansetron [Zofran] 4 mg IV Q4H PRN Sodium Chloride 0.9% [Saline Flush] 10 ml FLUSH ASDIRECTED PRN oxyCODONE 5 mg PO Q4H PRN polyethylene glycoL 3350 [MiraLAX] 17 gm PO DAILY PRN 12/04/19 18:47 Patient Status [ADT] Routine Ambulate [RC] QID Cardiac Monitoring [RC] Q6H Height and Weight [RC] DAILY Intake and Output [RC] QSHIFT Notify Provider Vital Signs [RC] ASDIRECTED Oxygen Therapy [RC] PRN Peripheral IV Care [RC] . DIRECTED Pulse Oximetry [RC] CONTINUOUS RT Aerosol Therapy [RC] ASDIRECTED Up With Assistance [RC] ASDIRECTED Up to Chair [RC] QID VTE/DVT Education [RC] Per Unit Routine Vital Signs [RC] Q2H Peripheral IV Insertion Adult [OM.PC] Routine VTE Pharmacological Contraindications [AST] Per Unit Routine 12/04/19 21:00 Budesonide [Pulmicort] 0.25 mg INH BIDRT 12/05/19 08:00 Echo Comp wo Cont [US] Urgent 12/05/19 09:00 atorvaSTATin [Lipitor] 20 mg PO DAILY 12/05/19 09:10 Convert IV to Saline Lock [OM.PC] Routine 12/05/19 09:15 PTT,PARTIAL THROMBOPLSTIN TIME [COAG] Routine 12/05/19 10:00 Warfarin [Coumadin] 5 mg PO ONETIME ONE 12/06/19 05:00 BASIC METABOLIC PANEL,BMP [CHEM] Timed CBC WITH AUTO DIFF [HEME] Timed TROPONIN I [CHEM] Timed 12/06/19 05:11 INR,PT,PROTHROMBIN TIME [COAG] AM - Plan Plan:: ASSESSMENT AND PLAN BILATERAL PULMONARY EMBOLI-able through the night, requiring low level of supplemental oxygen, remains mildly tachycardic -Saline lock IV -IV heparin continuous infusion -2 g p.o. today -Echocardiogram pending ELEVATED TROPONIN-likely secondary effect from large PE -Continue to monitor STATUS POST ELISHA FUNDOPLICATION-otherwise stable and doing well concerning recent surgery COPD-no evidence of exacerbation, oxygenating well -Continue outpatient medications HYPERTENSION-current blood pressure adequate -Hold antihypertensive therapy MAINTENANCE ISSUES -DVT prophylaxis; current therapy with IV heparin should provide adequate DVT prophylaxis -GI prophylaxis; not indicated -Devi catheter; not indicated -Nutrition; 2 g sodium diet -Nicotine dependence; not required CODE STATUS-FULL CODE ADMISSION STATUS-patient will be admitted to inpatient status, expect at least a 2 night hospital stay for evaluation and management of problems as outlined above. At the time of this admission I do not reasonably expected evaluation and management of this problem will require more than a 96 hour hospital stay. DISPOSITION-anticipate discharge to home after the hospital stay. PRIMARY CARE PROVIDER-
[2019-12-05] MEDS: atorvaSTATin 20 MG Tab PO SCH (09:25)
[2019-12-05] MEDS ORDERED: Warfarin 5 MG Tab PO ONE (10:00)
--- NOTE | 2019-12-05 11:11 | CR ---
CHEST: Portable 12/04/2019 at 2:23 PM CLINICAL HISTORY:Chest pain COMPARISON:None FINDINGS: The heart size, pulmonary vascularity and hilar structures are normal. No infiltrate effusion or pneumothorax is seen. There are atherosclerotic changes in the aorta. IMPRESSION: No acute cardiopulmonary process.
[2019-12-05] MEDS: Heparin Sodium/D5W 25,000 UNITS/500 ML BAG IV SCH (15:00)
[2019-12-05] MEDS: Melatonin 3 MG Tab PO SCH (21:27)
[2019-12-06] MEDS: Albuterol/Ipratropium 3.0-0.5 MG/3 ML Neb Soln INH PRN (05:31)
[2019-12-06] MEDS ORDERED: Heparin Sodium 5,000 Units/ML Vial ONE (06:47)
[2019-12-06] MEDS ORDERED: Heparin Sodium 5,000 Units/ML Vial IVPUSH ONE (06:54)
[2019-12-06] MEDS: Budesonide 0.25 MG/2 ML Neb Susp INH SCH ×2 (07:07→22:34)
[2019-12-06] MEDS: amLODIPine 5 MG Tab PO SCH (08:58)
[2019-12-06] MEDS: atorvaSTATin 20 MG Tab PO SCH (08:58)
[2019-12-06] MEDS: Hydrochlorothiazide/Triamterene 25-37.5 Tab PO SCH (08:58)
[2019-12-06] MEDS ORDERED: Non-Formulary Medication 1 Each (Amlodipine [Norvasc] 2.5 MG) PO SCH (09:00)
--- NOTE | 2019-12-06 09:26 | PCM.PN ---
- General Info Date of Service: 12/06/19 Subjective Update: Ms. Christine is remained stable over the last 24 hours, currently not requiring supplemental oxygen. She has been able to walk in the hallways short distances without supplemental O2 as well. Denies any symptoms of chest pain or pressure. - Review of Systems General: Reports: No Symptoms Pulmonary: Reports: Shortness of Breath. Denies: Pleuritic Chest Pain, Cough, Sputum, Hemoptysis, Wheezing Cardiovascular: Reports: Dyspnea on Exertion. Denies: Chest Pain, Palpitations, Orthopnea, PND, Edema, Lightheadedness Gastrointestinal: Reports: No Symptoms Genitourinary: Reports: No Symptoms - Patient Data Vitals - Most Recent: Last Vital Signs Temp 97.3 F 12/06/19 08:00 Pulse 100 12/06/19 08:00 Resp 17 12/06/19 08:00 BP 159/77 H 12/06/19 08:58 Pulse Ox 95 12/06/19 08:00 Weight - Most Recent: 174 lb 1.585 oz I&O - Last 24 Hours: Intake & Output 12/05/19 12/06/19 12/06/19 22:59 06:59 14:59 Intake Total 704 200 360 Output Total 450 450 325 Balance 254 -250 35 Lab Results Last 24 Hours: Laboratory Results - last 24 hr 12/05/19 12/05/19 12/05/19 Range/Units 09:18 15:48 21:25 WBC (4.5-11.0) K/uL RBC (3.30-5.50) M/uL Hgb (12.0-15.0) g/dL Hct (36.0-48.0) % MCV (80-98) fL MCH (27-31) pg MCHC (32-36) % Plt Count (150-400) K/uL Neut % (Auto) (36-66) % Lymph % (Auto) (24-44) % [place] % (Auto) (2-6) % Eos % (Auto) (2-4) % Baso % (Auto) (0-1) % PT (9.5-12.0) sec INR (0.80-1.20) APTT 101.9 H* 55.2 H 92.4 H* (27.0-36.0) sec Sodium (140-148) mmol/L Potassium (3.6-5.2) mmol/L Chloride (100-108) mmol/L Carbon Dioxide (21-32) mmol/L Anion Gap (5.0-14.0) mmol/L BUN (7-18) mg/dL Creatinine (0.6-1.0) mg/dL Est Cr Clr Drug Dosing mL/min Estimated GFR (MDRD) (>60) Glucose (74-106) mg/dL Calcium (8.5-10.1) mg/dL Troponin I (0.000-0.056) ng/mL 12/06/19 12/06/19 12/06/19 Range/Units 05:50 05:50 05:50 WBC 9.0 (4.5-11.0) K/uL RBC 3.91 (3.30-5.50) M/uL Hgb 11.9 L (12.0-15.0) g/dL Hct 36.1 (36.0-48.0) % MCV 92 (80-98) fL MCH 30 (27-31) pg MCHC 33 (32-36) % Plt Count 264 (150-400) K/uL Neut % (Auto) 61 (36-66) % Lymph % (Auto) 23 L (24-44) % [place] % (Auto) 13 H (2-6) % Eos % (Auto) 2 (2-4) % Baso % (Auto) 0 (0-1) % PT 11.0 (9.5-12.0) sec INR 1.02 (0.80-1.20) APTT (27.0-36.0) sec Sodium 139 L (140-148) mmol/L Potassium 4.4 (3.6-5.2) mmol/L Chloride 105 (100-108) mmol/L Carbon Dioxide 27 (21-32) mmol/L Anion Gap 11.4 (5.0-14.0) mmol/L BUN 18 (7-18) mg/dL Creatinine 0.7 (0.6-1.0) mg/dL Est Cr Clr Drug Dosing 56.12 mL/min Estimated GFR (MDRD) > 60 (>60) Glucose 99 (74-106) mg/dL Calcium 8.6 (8.5-10.1) mg/dL Troponin I 0.370 H* (0.000-0.056) ng/mL 12/06/19 Range/Units 05:50 WBC (4.5-11.0) K/uL RBC (3.30-5.50) M/uL Hgb (12.0-15.0) g/dL Hct (36.0-48.0) % MCV (80-98) fL MCH (27-31) pg MCHC (32-36) % Plt Count (150-400) K/uL Neut % (Auto) (36-66) % Lymph % (Auto) (24-44) % [place] % (Auto) (2-6) % Eos % (Auto) (2-4) % Baso % (Auto) (0-1) % PT (9.5-12.0) sec INR (0.80-1.20) APTT 33.1 (27.0-36.0) sec Sodium (140-148) mmol/L Potassium (3.6-5.2) mmol/L Chloride (100-108) mmol/L Carbon Dioxide (21-32) mmol/L Anion Gap (5.0-14.0) mmol/L BUN (7-18) mg/dL Creatinine (0.6-1.0) mg/dL Est Cr Clr Drug Dosing mL/min Estimated GFR (MDRD) (>60) Glucose (74-106) mg/dL Calcium (8.5-10.1) mg/dL Troponin I (0.000-0.056) ng/mL Med Orders - Current: Current Medications Acetaminophen (Tylenol) 650 mg PO Q4H PRN PRN Reason: Pain (Mild 1-3)/fever Albuterol/Ipratropium (Duoneb 3.0-0.5 Mg/3 Ml) 3 ml INH Q4H PRN PRN Reason: breathing Last Admin: 12/06/19 05:31 Dose: 3 ml Documented by: Amlodipine Besylate (Norvasc) 2.5 mg PO DAILY [facility] Last Admin: 12/06/19 08:58 Dose: 2.5 mg Documented by: Atorvastatin Calcium (Lipitor) 20 mg PO DAILY [facility] Last Admin: 12/06/19 08:58 Dose: 20 mg Documented by: Budesonide (Pulmicort) 0.25 mg INH BIDRT [facility] Last Admin: 12/06/19 07:07 Dose: 0.25 mg Documented by: Enoxaparin Sodium (Lovenox) 80 mg SUBCUT Q12H [facility] Melatonin (Melatonin) 6 mg PO BEDTIME [facility] Last Admin: 12/05/19 21:27 Dose: 6 mg Documented by: Nicotine Polacrilex (Nicorelief) 2 mg PO Q1H PRN PRN Reason: .smoking cessation Ondansetron HCl (Zofran) 4 mg IV Q4H PRN PRN Reason: Nausea/Vomiting Oxycodone HCl (Oxycodone) 5 mg PO Q4H PRN PRN Reason: Pain (moderate 4-6) Last Admin: 12/04/19 23:07 Dose: 5 mg Documented by: Polyethylene Glycol (Miralax) 17 gm PO DAILY PRN PRN Reason: Constipation Sodium Chloride (Saline Flush) 10 ml FLUSH ASDIRECTED PRN PRN Reason: Keep Vein Open Triamterene/HCTZ (Maxzide 25-37.5 Mg) 1 each PO DAILY [facility] Last Admin: 12/06/19 08:58 Dose: 1 each Documented by: Warfarin Sodium (Coumadin) 5 mg PO ONETIME ONE Stop: 12/06/19 10:01 Last Admin: 12/06/19 09:01 Dose: 5 mg Documented by: Discontinued Medications Heparin Sodium (Porcine) (Heparin Sodium) 5,000 units IVPUSH ONETIME ONE Stop: 12/04/19 17:00 Last Admin: 12/04/19 17:14 Dose: 5,000 units Documented by: Heparin Sodium (Porcine) (Heparin Sodium) Confirm Administered Dose 5,000 units .ROUTE .STK-MED ONE Stop: 12/06/19 06:48 Last Admin: 12/06/19 06:55 Dose: Not Given Documented by: Heparin Sodium (Porcine) (Heparin Sodium) 2,500 units IVPUSH ONETIME ONE Stop: 12/06/19 06:55 Last Admin: 12/06/19 07:10 Dose: 2,500 units Documented by: Sodium Chloride (Normal Saline) 1,000 mls @ 999 mls/hr IV ASDIRECTED [facility] Last Admin: 12/04/19 14:23 Dose: 999 mls/hr Documented by: Sodium Chloride (Normal Saline) 89 mls @ 3 mls/sec IV ASDIRECTED [facility] Last Admin: 12/04/19 15:52 Dose: 3 mls/sec Documented by: Heparin Sodium/Dextrose (Heparin 25,000 Units In D5w 500 Ml) 25,000 units in 500 mls @ 0 mls/hr IV TITRATE RAMANA; Protocol Last Titration: 12/06/19 06:57 Dose: 20.2 ml/hr, 20.2 mls/hr Documented by: Sodium Chloride (Normal Saline) 1,000 mls @ 125 mls/hr IV ASDIRECTED RAMANA Last Admin: 12/05/19 04:11 Dose: 125 mls/hr Documented by: Iopamidol (Isovue-370 (76%)) 64 ml IV . DIRECTED RAMANA Last Admin: 12/04/19 15:51 Dose: 64 ml Documented by: Sodium Chloride (Saline Flush) 10 ml FLUSH ONETIME ONE Stop: 12/04/19 15:09 Last Admin: 12/04/19 15:51 Dose: 10 ml Documented by: Warfarin Sodium (Coumadin) 5 mg PO ONETIME ONE Stop: 12/05/19 10:01 Last Admin: 12/05/19 09:25 Dose: 5 mg Documented by: - Exam Quality Assessment: DVT Prophylaxis. No: Supplemental Oxygen General: Alert, Oriented, Cooperative, Mild Distress Lungs: Clear to Auscultation, Normal Respiratory Effort Cardiovascular: Regular Rate, Regular Rhythm, No Murmurs GI/Abdominal Exam: Soft, Non-Tender, No Organomegaly, No Distention Extremities: Non-Tender, No Pedal Edema Sepsis Event Note - Evaluation Sepsis Screening Result: No Definite Risk - Focused Exam Vital Signs: Vital Signs Temp Pulse Resp BP BP Pulse Ox 12/06/19 08:58 159/77 H 12/06/19 08:00 97.3 F 100 17 159/77 H 95 12/06/19 07:07 94 12/06/19 06:00 96 18 152/86 H 92 L 12/06/19 04:00 96 137/77 12/06/19 03:47 93 19 169/89 H 93 L 12/06/19 02:00 88 16 120/55 L 99 12/06/19 01:13 98 12/06/19 00:00 86 18 144/71 H 99 12/05/19 22:00 96 17 149/89 H 98 Date Exam was Performed: 12/06/19 Time Exam was Performed: 09:22 - Problem List Review Problem List Initiated/Reviewed/Updated: Yes - My Orders Last 24 Hours: My Active Orders 12/05/19 09:00 atorvaSTATin [Lipitor] 20 mg PO DAILY 12/05/19 09:10 Convert IV to Saline Lock [OM.PC] Routine 12/05/19 21:00 Melatonin 6 mg PO BEDTIME 12/06/19 09:00 HCTZ/Triamterene [Maxzide 25-37.5 MG] 1 each PO DAILY amLODIPine [Norvasc] 2.5 mg PO DAILY 12/06/19 09:18 Patient Status [ADT] Routine 12/06/19 09:19 VL Duplex Lwr Ext Veins Comp [US] Stat 12/06/19 09:30 Enoxaparin [Lovenox] 80 mg SUBCUT Q12H 12/06/19 10:00 Warfarin [Coumadin] 5 mg PO ONETIME ONE 12/06/19 11:15 PTT,PARTIAL THROMBOPLSTIN TIME [COAG] Routine 12/07/19 05:11 INR,PT,PROTHROMBIN TIME [COAG] AM - Plan Plan:: ASSESSMENT AND PLAN BILATERAL PULMONARY EMBOLI-stable over the last 24 hours, not requiring supplemental oxygen. Echocardiogram does show evidence of right heart strain with increase in right-sided pressures and right heart enlargement, formal repo rt pending -Saline lock IV -Discontinue IV heparin -Warfarin 5 mg p.o. today -Bilateral lower extremity venous Doppler to evaluate for residual DVT ELEVATED TROPONIN-likely secondary effect from large PE STATUS POST ELISHA FUNDOPLICATION-otherwise stable and doing well concerning recent surgery COPD-no evidence of exacerbation, oxygenating well -Continue outpatient medications HYPERTENSION-current blood pressure adequate -Hold antihypertensive therapy MAINTENANCE ISSUES -DVT prophylaxis; current therapy with IV heparin should provide adequate DVT prophylaxis -GI prophylaxis; not indicated -Devi catheter; not indicated -Nutrition; 2 g sodium diet -Nicotine dependence; not required CODE STATUS-FULL CODE ADMISSION STATUS-patient will be admitted to inpatient status, expect at least a 2 night hospital stay for evaluation and management of problems as outlined above. At the time of this admission I do not reasonably expected evaluation and management of this problem will require more than a 96 hour hospital stay. DISPOSITION-anticipate discharge to home after the hospital stay. PRIMARY CARE PROVIDER-
[2019-12-06] MEDS: Enoxaparin 80 MG/0.8 ML Syringe SUBCUT SCH ×2 (09:51→22:36)
[2019-12-06] MEDS ORDERED: Warfarin 5 MG Tab PO ONE (10:00)
[2019-12-06] MEDS: Melatonin 3 MG Tab PO SCH (22:36)
[2019-12-07] MEDS: Budesonide 0.25 MG/2 ML Neb Susp INH SCH ×2 (07:19→21:18)
[2019-12-07] MEDS: amLODIPine 5 MG Tab PO SCH (08:46)
[2019-12-07] MEDS: atorvaSTATin 20 MG Tab PO SCH (08:47)
[2019-12-07] MEDS: Hydrochlorothiazide/Triamterene 25-37.5 Tab PO SCH (08:47)
--- NOTE | 2019-12-07 10:07 | PCM.PN ---
- General Info Date of Service: 12/07/19 Subjective Update: Ms. Christine has been stable since yesterday, continues to intermittently require some supplemental oxygen. She has been walking in the hallways and does note shortness of breath. She is remained hemodynamically stable and afebrile. Functional Status: Reports: Tolerating Diet, Ambulating, Urinating - Review of Systems General: Reports: Weakness, Fatigue. Denies: Fever, Chills Pulmonary: Reports: Shortness of Breath. Denies: Pleuritic Chest Pain, Cough, Sputum, Hemoptysis, Wheezing Cardiovascular: Reports: Dyspnea on Exertion. Denies: Chest Pain, Palpitations, Orthopnea, PND, Edema, Lightheadedness Gastrointestinal: Reports: No Symptoms - Patient Data Vitals - Most Recent: Last Vital Signs Temp 97.0 F 12/07/19 07:00 Pulse 88 12/07/19 07:00 Resp 18 12/07/19 07:00 BP 127/78 12/07/19 08:46 Pulse Ox 95 12/07/19 07:16 Weight - Most Recent: 168 lb 6.4 oz I&O - Last 24 Hours: Intake & Output 12/06/19 12/07/19 12/07/19 22:59 06:59 14:59 Intake Total 720 200 Balance 720 200 Lab Results Last 24 Hours: Laboratory Results - last 24 hr 12/07/19 Range/Units 04:28 PT 11.8 (9.5-12.0) sec INR 1.10 (0.80-1.20) Med Orders - Current: Current Medications Acetaminophen (Tylenol) 650 mg PO Q4H PRN PRN Reason: Pain (Mild 1-3)/fever Albuterol/Ipratropium (Duoneb 3.0-0.5 Mg/3 Ml) 3 ml INH Q4H PRN PRN Reason: breathing Last Admin: 12/06/19 05:31 Dose: 3 ml Documented by: Amlodipine Besylate (Norvasc) 2.5 mg PO DAILY [facility] Last Admin: 12/07/19 08:46 Dose: 2.5 mg Documented by: Atorvastatin Calcium (Lipitor) 20 mg PO DAILY [facility] Last Admin: 12/07/19 08:47 Dose: 20 mg Documented by: Budesonide (Pulmicort) 0.25 mg INH BIDRT [facility] Last Admin: 12/07/19 07:19 Dose: 0.25 mg Documented by: Enoxaparin Sodium (Lovenox) 120 mg SUBCUT DAILY [facility] Melatonin (Melatonin) 6 mg PO BEDTIME [facility] Last Admin: 12/06/19 22:36 Dose: 6 mg Documented by: Nicotine Polacrilex (Nicorelief) 2 mg PO Q1H PRN PRN Reason: .smoking cessation Ondansetron HCl (Zofran) 4 mg IV Q4H PRN PRN Reason: Nausea/Vomiting Oxycodone HCl (Oxycodone) 5 mg PO Q4H PRN PRN Reason: Pain (moderate 4-6) Last Admin: 12/04/19 23:07 Dose: 5 mg Documented by: Polyethylene Glycol (Miralax) 17 gm PO DAILY PRN PRN Reason: Constipation Sodium Chloride (Saline Flush) 10 ml FLUSH ASDIRECTED PRN PRN Reason: Keep Vein Open Triamterene/HCTZ (Maxzide 25-37.5 Mg) 1 each PO DAILY [facility] Last Admin: 12/07/19 08:47 Dose: 1 each Documented by: Warfarin Sodium (Coumadin) 7.5 mg PO ONETIME ONE Stop: 12/07/19 13:01 Discontinued Medications Enoxaparin Sodium (Lovenox) 80 mg SUBCUT Q12H [facility] Last Admin: 12/06/19 22:36 Dose: 80 mg Documented by: Heparin Sodium (Porcine) (Heparin Sodium) 5,000 units IVPUSH ONETIME ONE Stop: 12/04/19 17:00 Last Admin: 12/04/19 17:14 Dose: 5,000 units Documented by: Heparin Sodium (Porcine) (Heparin Sodium) Confirm Administered Dose 5,000 units .ROUTE .STK-MED ONE Stop: 12/06/19 06:48 Last Admin: 12/06/19 06:55 Dose: Not Given Documented by: Heparin Sodium (Porcine) (Heparin Sodium) 2,500 units IVPUSH ONETIME ONE Stop: 12/06/19 06:55 Last Admin: 12/06/19 07:10 Dose: 2,500 units Documented by: Sodium Chloride (Normal Saline) 1,000 mls @ 999 mls/hr IV ASDIRECTED [facility] Last Admin: 12/04/19 14:23 Dose: 999 mls/hr Documented by: Sodium Chloride (Normal Saline) 89 mls @ 3 mls/sec IV ASDIRECTED [facility] Last Admin: 12/04/19 15:52 Dose: 3 mls/sec Documented by: Heparin Sodium/Dextrose (Heparin 25,000 Units In D5w 500 Ml) 25,000 units in 500 mls @ 0 mls/hr IV TITRATE [facility]; Protocol Last Titration: 12/06/19 06:57 Dose: 20.2 ml/hr, 20.2 mls/hr Documented by: Sodium Chloride (Normal Saline) 1,000 mls @ 125 mls/hr IV ASDIRECTED [facility] Last Admin: 12/05/19 04:11 Dose: 125 mls/hr Documented by: Iopamidol (Isovue-370 (76%)) 64 ml IV . DIRECTED [facility] Last Admin: 12/04/19 15:51 Dose: 64 ml Documented by: Sodium Chloride (Saline Flush) 10 ml FLUSH ONETIME ONE Stop: 12/04/19 15:09 Last Admin: 12/04/19 15:51 Dose: 10 ml Documented by: Warfarin Sodium (Coumadin) 5 mg PO ONETIME ONE Stop: 12/05/19 10:01 Last Admin: 12/05/19 09:25 Dose: 5 mg Documented by: Warfarin Sodium (Coumadin) 5 mg PO ONETIME ONE Stop: 12/06/19 10:01 Last Admin: 12/06/19 09:01 Dose: 5 mg Documented by: - Exam Quality Assessment: Supplemental Oxygen, DVT Prophylaxis General: Alert, Oriented, Cooperative, Mild Distress Lungs: Clear to Auscultation, Normal Respiratory Effort Cardiovascular: Regular Rate, Regular Rhythm, No Murmurs GI/Abdominal Exam: Soft, Non-Tender, No Organomegaly, No Distention Extremities: Non-Tender, No Pedal Edema Sepsis Event Note - Evaluation Sepsis Screening Result: No Definite Risk - Focused Exam Vital Signs: Vital Signs Temp Pulse Resp BP BP Pulse Ox Pulse Ox 12/07/19 08:46 127/78 12/07/19 07:16 95 12/07/19 07:00 97.0 F 88 18 127/78 98 12/07/19 02:36 97.3 F 87 16 129/64 95 12/07/19 01:37 87 L 12/06/19 22:28 98.5 F 97 16 155/87 H 95 Date Exam was Performed: 12/07/19 Time Exam was Performed: 10:04 - Problem List Review Problem List Initiated/Reviewed/Updated: Yes - My Orders Last 24 Hours: My Active Orders 12/06/19 09:18 Patient Status [ADT] Routine 12/06/19 09:19 VL Duplex Lwr Ext Veins Comp [US] Stat 12/06/19 11:30 Vital Signs [RC] Q4H 12/07/19 10:15 Enoxaparin [Lovenox] 120 mg SUBCUT DAILY 12/07/19 13:00 Warfarin [Coumadin] 7.5 mg PO ONETIME ONE 12/08/19 05:11 INR,PT,PROTHROMBIN TIME [COAG] AM - Plan Plan:: ASSESSMENT AND PLAN BILATERAL PULMONARY EMBOLI-stable over the last 24 hours, not requiring supplemental oxygen. Echocardiogram does show evidence of right heart strain with increase in right-sided pressures and right heart enlargement, formal report pending. INR remains subtherapeutic. -Saline lock IV -Discontinue IV heparin -Warfarin 7.5 mg p.o. today -Lovenox 120 mg subcu daily -Bilateral lower extremity venous Doppler done yesterday, formal report pending ELEVATED TROPONIN-likely secondary effect from large PE STATUS POST ELISHA FUNDOPLICATION-otherwise stable and doing well concerning recent surgery COPD-no evidence of exacerbation, oxygenating well -Continue outpatient medications HYPERTENSION-current blood pressure adequate -Hold antihypertensive therapy MAINTENANCE ISSUES -DVT prophylaxis; current therapy with IV heparin should provide adequate DVT prophylaxis -GI prophylaxis; not indicated -Devi catheter; not indicated -Nutrition; 2 g sodium diet -Nicotine dependence; not required CODE STATUS-FULL CODE ADMISSION STATUS-patient will be admitted to inpatient status, expect at least a 2 night hospital stay for evaluation and management of problems as outlined above. At the time of this admission I do not reasonably expected evaluation and management of this problem will require more than a 96 hour hospital stay. DISPOSITION-anticipate discharge to home after the hospital stay. PRIMARY CARE PROVIDER-
--- NOTE | 2019-12-07 10:27 | CRLUS ---
Final Report: INDICATION: Known pulmonary embolism. TECHNIQUE: Ultrasound venous duplex lower right extremity. Compression venous exam was performed using deng-scale, color Doppler, and spectral Doppler imaging. COMPARISON: CT chest 12/04/2019. FINDINGS: Right common femoral vein is patent without thrombus. The upper to mid aspect of the right femoral vein is patent without thrombus. Occlusive thrombus is present within the more inferior aspect of the right femoral vein and right popliteal vein. Right posterior tibial and peroneal veins are patent without thrombus. - On the left, the common femoral, femoral, popliteal, posterior tibial and peroneal veins are patent without thrombus. IMPRESSION: 1. Right-sided DVT involving the inferior aspect of the femoral vein and popliteal vein in this patient with known pulmonary embolism. 2. No left-sided DVT. Preliminary report was issued by the cytogenetics technologist to the ICU nurse following the conclusion of the study. Final report agrees with prelim report. Dictated by Filemon Hayden MD @ 12/07/2019 10:20:01 AM Dictated by: Filemon Hayden MD @ 12/07/2019 10:20:26 (Electronic Signature) MTDD
[2019-12-07] MEDS: Enoxaparin 80 MG/0.8 ML Syringe SUBCUT SCH (10:29)
[2019-12-07] MEDS: Enoxaparin 120 MG/0.8 ML Syringe SUBCUT SCH (11:11)
[2019-12-07] MEDS ORDERED: Warfarin 2.5 MG Tab PO ONE (13:00)
[2019-12-07] MEDS: Albuterol/Ipratropium 3.0-0.5 MG/3 ML Neb Soln INH PRN (13:30)
[2019-12-07] MEDS: Melatonin 3 MG Tab PO SCH (21:17)
[2019-12-08] MEDS: Budesonide 0.25 MG/2 ML Neb Susp INH SCH (07:02)
[2019-12-08] MEDS: atorvaSTATin 20 MG Tab PO SCH (08:25)
[2019-12-08] MEDS: amLODIPine 5 MG Tab PO SCH (08:26)
[2019-12-08] MEDS: Hydrochlorothiazide/Triamterene 25-37.5 Tab PO SCH (08:26)
[2019-12-08] MEDS: Enoxaparin 120 MG/0.8 ML Syringe SUBCUT SCH (08:28)
[2019-12-08] MEDS ORDERED: Warfarin 2.5 MG Tab PO ONE (11:00)
--- NOTE | 2019-12-08 11:35 | PCM.DCSUM1 ---
Discharge Summary - Hospital Course Brief History: Ms. Christine is a 74-year-old woman who was admitted through the emergency department with weakness, shortness of breath, lightheadedness, secondary to bilateral pulmonary emboli. - Discharge Data Discharge Date: 12/08/19 Discharge Disposition: Home, Self-Care 01 Condition: Fair - Referral to Home Health Primary Care Physician: PCP None - Discharge Diagnosis/Problem(s) (1) Hypoxia SNOMED Code(s): 603281450 ICD Code: R09.02 - HYPOXEMIA Status: Acute Current Visit: Yes (2) Pulmonary embolism SNOMED Code(s): 18731563 ICD Code: I26.99 - OTHER PULMONARY EMBOLISM WITHOUT ACUTE COR PULMONALE Status: Acute Current Visit: Yes (3) Saddle embolus SNOMED Code(s): 370841575, 34962297, 263308731 ICD Code: [id number] - Status: Acute Current Visit: Yes (4) COPD, moderate SNOMED Code(s): 620745768 ICD Code: J44.9 - CHRONIC OBSTRUCTIVE PULMONARY DISEASE, UNSPECIFIED Status: Chronic Current Visit: No - Patient Summary/Data Hospital Course: Ms. Christine is a 74-year-old woman who was admitted through the emergency department with weakness, syncope, shortness of breath, secondary to bilateral pulmonary emboli. She underwent surgery approximately 3 weeks ago for reflux with a Billy fundoplication. Over the last week and a half she has noted progressive symptoms of shortness of breath. On the day of admission she experienced symptoms of chest pain associated with shortness of breath and lightheadedness, with a syncopal episode. CT scan shows a large amount of clot both lungs, involving both pulmonary arteries and with a saddle embolism appearance. She has a mild resting tachycardia, otherwise she has been hemodynamically stable and oxygenating well on room air. Findings were reviewed with spotter driver on-call who without felt that she could be anticoagulated and safely kept here for the time being. She denies any previous history of deep vein thrombosis or pulmonary emboli. On admission she was started on IV heparin continuous infusion following a bolus dose of heparin. By the time of discharge she had been cleared converted to subcutaneous Lovenox once daily dosing of 1- 1/2 mg/kg. She was started on warfarin during her hospital stay after 2 initial doses of 5 mg with normal INR dose was increased to 7-1/2 and she received 2 more days of this. Despite increasing dose INR remained fairly low and was not yet within therapeutic range. She will be continued on Lovenox once daily dosing until INR has been within therapeutic range for a period of 2 days. Follow-up appointment will be scheduled in the Coumadin clinic tomorrow December 08. Follow-up appointment will be scheduled with her primary care provider within 1 week. On the night prior to discharge she was noted to have oxygen saturation of 87% on room air while sleeping. She will be discharged home with home nocturnal oxygen 2 L/min via nasal cannula. Activity will be as tolerated and she will resume her usual diet. - Patient Instructions Diet: Usual Diet as Tolerated Activity: As Tolerated Other/Special Instructions: Please schedule follow-up appointment Coumadin clinic for Monday, December 08. Please arrange for daily Lovenox injections 120 mg subcutaneously, until INR has been within therapeutic range for 2 days. Please schedule follow-up appointment with primary care provider within 1 week. Please arrange for home oxygen nocturnal 2 L/min via nasal cannula. - Discharge Plan *PRESCRIPTION DRUG MONITORING PROGRAM REVIEWED*: Not Applicable *COPY OF PRESCRIPTION DRUG MONITORING REPORT IN PATIENT JOLENE: Not Applicable Prescriptions/Med Rec: Warfarin [Coumadin] 7.5 mg PO DAILY #100 tab Home Medications: Home Meds HCTZ/Triamterene [Maxzide 25-37.5 MG] 1 each PO DAILY 03/10/17 [History] Multivitamin with Minerals [Multiple Vitamin] 1 tab PO DAILY 03/10/17 [History] Nicotine Polacrilex [Nicotine Gum] 2 mg BC ASDIRECTED PRN 03/10/17 [History] atorvaSTATin [Lipitor] 20 mg PO DAILY 03/10/17 [History] amLODIPine [Norvasc] 2.5 mg PO DAILY 01/05/18 [History] Budesonide [Pulmicort] 1 inh INH BID 12/04/19 [History] Ipratropium/Albuterol Sulfate [Iprat-Albut 0.5-3(2.5) mg/3 ml] 3 ml INH Q4H PRN 12/04/19 [History] Warfarin [Coumadin] 7.5 mg PO DAILY #100 tab 12/08/19 [Rx] Patient Handouts: What You Need to Know About Warfarin, Warfarin tablets, Pulmonary Embolism Referrals: Coumadin,Clinic [Ordering Only Provider] - 12/09/19 11:45 am (YOUR APPOINTMENT WITH THE COUMADIN CLINIC IS AT [facility] IN [place].) Isabella Damon PA-C [Ordering Only Provider] - 12/11/19 12:00 pm - Discharge Summary/Plan Comment DC Time >30 min.: No - Patient Data Vitals - Most Recent: Last Vital Signs Temp 96.7 F L 12/08/19 07:00 Pulse 92 12/08/19 07:02 Resp 18 12/08/19 07:00 BP 130/64 12/08/19 08:26 Pulse Ox 96 12/08/19 07:43 Weight - Most Recent: 168 lb 9.6 oz I&O - Last 24 hours: Intake & Output 12/07/19 12/08/19 12/08/19 22:59 06:59 14:59 Intake Total 300 Balance 300 Lab Results - Last 24 hrs: Laboratory Results - last 24 hr 12/08/19 Range/Units 04:40 PT 12.5 H (9.5-12.0) sec INR 1.17 (0.80-1.20) Med Orders - Current: Current Medications Acetaminophen (Tylenol) 650 mg PO Q4H PRN PRN Reason: Pain (Mild 1-3)/fever Albuterol/Ipratropium (Duoneb 3.0-0.5 Mg/3 Ml) 3 ml INH Q4H PRN PRN Reason: breathing Last Admin: 12/07/19 13:30 Dose: 3 ml Documented by: Amlodipine Besylate (Norvasc) 2.5 mg PO DAILY [facility] Last Admin: 12/08/19 08:26 Dose: 2.5 mg Documented by: Atorvastatin Calcium (Lipitor) 20 mg PO DAILY [facility] Last Admin: 12/08/19 08:25 Dose: 20 mg Documented by: Budesonide (Pulmicort) 0.25 mg INH BIDRT [facility] Last Admin: 12/08/19 07:02 Dose: 0.25 mg Documented by: Enoxaparin Sodium (Lovenox) 120 mg SUBCUT DAILY [facility] Last Admin: 12/08/19 08:28 Dose: 120 mg Documented by: Melatonin (Melatonin) 6 mg PO BEDTIME [facility] Last Admin: 12/07/19 21:17 Dose: 6 mg Documented by: Nicotine Polacrilex (Nicorelief) 2 mg PO Q1H PRN PRN Reason: .smoking cessation Ondansetron HCl (Zofran) 4 mg IV Q4H PRN PRN Reason: Nausea/Vomiting Oxycodone HCl (Oxycodone) 5 mg PO Q4H PRN PRN Reason: Pain (moderate 4-6) Last Admin: 12/04/19 23:07 Dose: 5 mg Documented by: Polyethylene Glycol (Miralax) 17 gm PO DAILY PRN PRN Reason: Constipation Sodium Chloride (Saline Flush) 10 ml FLUSH ASDIRECTED PRN PRN Reason: Keep Vein Open Triamterene/HCTZ (Maxzide 25-37.5 Mg) 1 each PO DAILY [facility] Last Admin: 12/08/19 08:26 Dose: 1 each Documented by: Discontinued Medications Enoxaparin Sodium (Lovenox) 80 mg SUBCUT Q12H [facility] Last Admin: 12/07/19 10:29 Dose: Not Given Documented by: Heparin Sodium (Porcine) (Heparin Sodium) 5,000 units IVPUSH ONETIME ONE Stop: 12/04/19 17:00 Last Admin: 12/04/19 17:14 Dose: 5,000 units Documented by: Heparin Sodium (Porcine) (Heparin Sodium) Confirm Administered Dose 5,000 units .ROUTE .STK-MED ONE Stop: 12/06/19 06:48 Last Admin: 12/06/19 06:55 Dose: Not Given Documented by: Heparin Sodium (Porcine) (Heparin Sodium) 2,500 units IVPUSH ONETIME ONE Stop: 12/06/19 06:55 Last Admin: 12/06/19 07:10 Dose: 2,500 units Documented by: Sodium Chloride (Normal Saline) 1,000 mls @ 999 mls/hr IV ASDIRECTED [facility] Last Admin: 12/04/19 14:23 Dose: 999 mls/hr Documented by: Sodium Chloride (Normal Saline) 89 mls @ 3 mls/sec IV ASDIRECTED [facility] Last Admin: 12/04/19 15:52 Dose: 3 mls/sec Documented by: Heparin Sodium/Dextrose (Heparin 25,000 Units In D5w 500 Ml) 25,000 units in 500 mls @ 0 mls/hr IV TITRATE [facility]; Protocol Last Titration: 12/06/19 06:57 Dose: 20.2 ml/hr, 20.2 mls/hr Documented by: Sodium Chloride (Normal Saline) 1,000 mls @ 125 mls/hr IV ASDIRECTED [facility] Last Admin: 12/05/19 04:11 Dose: 125 mls/hr Documented by: Iopamidol (Isovue-370 (76%)) 64 ml IV . DIRECTED [facility] Last Admin: 12/04/19 15:51 Dose: 64 ml Documented by: Sodium Chloride (Saline Flush) 10 ml FLUSH ONETIME ONE Stop: 12/04/19 15:09 Last Admin: 12/04/19 15:51 Dose: 10 ml Documented by: Warfarin Sodium (Coumadin) 5 mg PO ONETIME ONE Stop: 12/05/19 10:01 Last Admin: 12/05/19 09:25 Dose: 5 mg Documented by: Warfarin Sodium (Coumadin) 5 mg PO ONETIME ONE Stop: 12/06/19 10:01 Last Admin: 12/06/19 09:01 Dose: 5 mg Documented by: Warfarin Sodium (Coumadin) 7.5 mg PO ONETIME ONE Stop: 12/07/19 13:01 Last Admin: 12/07/19 13:27 Dose: 7.5 mg Documented by: Warfarin Sodium (Coumadin) 7.5 mg PO ONETIME ONE Stop: 12/08/19 11:01 Last Admin: 12/08/19 10:25 Dose: 7.5 mg Documented by: - Exam Quality Assessment: Reports: DVT Prophylaxis General: Reports: Alert, Oriented, Cooperative, Mild Distress Lungs: Reports: Clear to Auscultation, Normal Respiratory Effort, Decreased Breath Sounds Cardiovascular: Reports: Regular Rate, Regular Rhythm, No Murmurs GI/Abdominal Exam: Soft, Non-Tender, No Organomegaly, No Distention Extremities: Non-Tender, No Pedal Edema *Q Meaningful Use (DIS) - VTE *Q VTE Pharmacological Contraindications *Q: High INR Value
== END 2019-12-08 12:10 | disposition home or self-care (01) | DRG 176 ==
LOC: JP.ED 13:46 → JP.ICU 17:07 → JP.MS 12-06 11:39
PROVIDERS: ADMIT Hospitalist; ATTEND Hospitalist
DX: I26.92 Saddle embolus of pulmonary artery without acute cor pulmonale (principal); H54.7 Unspecified visual loss; J44.9 Chronic obstructive pulmonary disease, unspecified; E78.00 Pure hypercholesterolemia, unspecified; I10 Essential (primary) hypertension; J30.9 Allergic rhinitis, unspecified; K21.9 Gastro-esophageal reflux disease without esophagitis; Z86.010 Personal history of colon polyps; M19.90 Unspecified osteoarthritis, unspecified site; F32.9 Major depressive disorder, single episode, unspecified; F41.9 Anxiety disorder, unspecified; E66.9 Obesity, unspecified; Z88.6 Allergy status to analgesic agent; Z88.1 Allergy status to other antibiotic agents; Z88.0 Allergy status to penicillin; Z79.899 Other long term (current) drug therapy; Z87.891 Personal history of nicotine dependence; Z98.84 Bariatric surgery status; Z68.31 Body mass index [BMI] 31.0-31.9, adult
CPT/HCPCS: 36415; 71045 ×2; 71275; 80053; 81001; 84484; 85025; 85379; 85730; 93005; 96360; 99285; J7030; J7050 ×2; Q9967; 80048; 85610; 93010; 93306; 93970; 94640; 94762; A9270-GY; J1644; J1650; J7620-GY

== ENCOUNTER 2019-12-10 12:03 | Emergency (ER) | payer MEDICARE ==
[2019-12-10] MEDS ORDERED: Sodium Chloride 0.9% 1,000 ML IV SCH (13:45)
--- NOTE | 2019-12-10 14:01 | EDM.PDOC ---
ED HPI GENERAL MEDICAL PROBLEM - General Chief Complaint: Chest Pain Stated Complaint: R SHOULDER/CHEST PAIN Time Seen by Provider: 12/10/19 13:58 Source of Information: Reports: Patient History Limitations: Reports: No Limitations - History of Present Illness INITIAL COMMENTS - FREE TEXT/NARRATIVE: pt had a problem with chest pressure and severe left shoulder pain. last nite. She has some pleuritc chest pain on the left today. She feels ok with her breathing at this time. Onset: Sudden, Other ( the pain occured last nite and is gone at this time except for the pleuritc pain. ) Duration: Hour(s): Location: Reports: Chest, Other ( hurts to take a deep breath. ) Associated Symptoms: Reports: Chest Pain, Other ( hurts to unique a deep breath. ) - Related Data Allergies Allergy/AdvReac Type Severity Reaction Status Date / Time amoxicillin Allergy Intermediate Rash Verified 12/10/19 12:39 niacin Allergy Intermediate Swelling Verified 12/10/19 12:39 penicillin V Allergy Intermediate Itching Verified 12/10/19 12:39 Home Meds: Home Meds HCTZ/Triamterene [Maxzide 25-37.5 MG] 1 each PO DAILY 03/10/17 [History] Multivitamin with Minerals [Multiple Vitamin] 1 tab PO DAILY 03/10/17 [History] Nicotine Polacrilex [Nicotine Gum] 2 mg BC ASDIRECTED PRN 03/10/17 [History] atorvaSTATin [Lipitor] 20 mg PO DAILY 03/10/17 [History] amLODIPine [Norvasc] 2.5 mg PO DAILY 01/05/18 [History] Budesonide [Pulmicort] 1 inh INH BID 12/04/19 [History] Ipratropium/Albuterol Sulfate [Iprat-Albut 0.5-3(2.5) mg/3 ml] 3 ml INH Q4H PRN 12/04/19 [History] Warfarin [Coumadin] 7.5 mg PO DAILY #100 tab 12/08/19 [Rx] Enoxaparin [Lovenox] 80 mg SUBCUT DAILY 12/10/19 [History] Past Medical History HEENT History: Reports: Allergic Rhinitis, Impaired Vision Cardiovascular History: Reports: High Cholesterol, Hypertension Respiratory History: Reports: COPD, PE Gastrointestinal History: Reports: Colon Polyp, GERD 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: Musculoskeletal History: Reports: Fracture, Osteoarthritis Neurological History: Reports: Migraines Psychiatric History: Reports: Anxiety, Depression, Mood Swings, Panic Attack Endocrine/Metabolic History: Reports: Obesity/BMI 30+ - Infectious Disease History Infectious Disease History: Reports: Chicken Pox, Measles, Mumps - Past Surgical History HEENT Surgical History: Reports: Tonsillectomy, Other (See Below) Other HEENT Surgeries/Procedures: eye surgery as a child Cardiovascular Surgical History: Reports: None Respiratory Surgical History: Reports: None GI Surgical History: Reports: Colonoscopy, Polypectomy Neurological Surgical History: Reports: None Musculoskeletal Surgical History: Reports: None Social & Family History - Family History Family Medical History: Noncontributory - Tobacco Use Smoking Status *Q: Former Smoker Years of Tobacco use: 50 Packs/Tins Daily: 1 Used Tobacco, but Quit: Yes Month/Year Tobacco Last Used: november 2014 - Caffeine Use Caffeine Use: Reports: Coffee - Alcohol Use Days Per Week of Alcohol Use: 7 Number of Drinks Per Day: 1 Total Drinks Per Week: 7 - Recreational Drug Use Recreational Drug Use: No ED ROS GENERAL - Review of Systems Review Of Systems: See Below Constitutional: Reports: No Symptoms HEENT: Reports: No Symptoms Respiratory: Reports: Shortness of Breath, Pleuritic Chest Pain Cardiovascular: Reports: Other ( chest pressure) Endocrine: Reports: No Symptoms GI/Abdominal: Reports: No Symptoms : Reports: No Symptoms Musculoskeletal: Reports: No Symptoms Course - Vital Signs Last Recorded V/S: Last Vital Signs Temp 36.2 C 12/10/19 15:44 Pulse 94 12/10/19 15:44 Resp 15 12/10/19 15:44 BP 160/71 H 12/10/19 15:44 Pulse Ox 96 12/10/19 15:44 - Orders/Labs/Meds Orders: Active Orders 24 hr Category Date Time Status EKG Documentation Completion [RC] ASDIRECTED Care 12/10/19 13:00 Active Sodium Chloride 0.9% [Normal Saline] 1,000 ml Med 12/10/19 13:45 Active IV ASDIRECTED EKG 12 Lead [EK] Routine Ther 12/10/19 13:00 Ordered Medication Orders Sodium Chloride (Normal Saline) 1,000 mls @ 200 mls/hr IV ASDIRECTED RAMANA Labs: Laboratory Tests 12/10/19 12/10/19 12/10/19 Range/Units 14:27 14:27 14:27 WBC 8.2 (4.5-11.0) K/uL RBC 4.68 (3.30-5.50) M/uL Hgb 13.5 (12.0-15.0) g/dL Hct 43.3 (36.0-48.0) % MCV 93 (80-98) fL MCH 29 (27-31) pg MCHC 31 L (32-36) % Plt Count 501 H (150-400) K/uL Neut % (Auto) 53 (36-66) % Lymph % (Auto) 26 (24-44) % Sherman % (Auto) 15 H (2-6) % Eos % (Auto) 5 H (2-4) % Baso % (Auto) 1 (0-1) % PT (9.5-12.0) sec INR (0.80-1.20) APTT 53.8 H (27.0-36.0) sec Sodium 137 L (140-148) mmol/L Potassium 4.1 (3.6-5.2) mmol/L Chloride 99 L (100-108) mmol/L Carbon Dioxide 30 (21-32) mmol/L Anion Gap 12.1 (5.0-14.0) mmol/L BUN 19 H (7-18) mg/dL Creatinine 0.9 (0.6-1.0) mg/dL Est Cr Clr Drug Dosing 44.03 mL/min Estimated GFR (MDRD) > 60 (>60) Glucose 91 (74-106) mg/dL Calcium 9.6 (8.5-10.1) mg/dL Total Bilirubin 0.3 (0.2-1.0) mg/dL AST 131 H D (15-37) U/L ALT 168 H (12-78) U/L Alkaline Phosphatase 201 H (46-116) U/L Troponin I (0.000-0.056) ng/mL Total Protein 8.3 H (6.4-8.2) g/dL Albumin 3.3 L (3.4-5.0) g/dL Globulin 5.0 H (2.3-3.5) g/dL Albumin/Globulin Ratio 0.7 L (1.2-2.2) 12/10/19 12/10/19 Range/Units 14:27 14:27 WBC (4.5-11.0) K/uL RBC (3.30-5.50) M/uL Hgb (12.0-15.0) g/dL Hct (36.0-48.0) % MCV (80-98) fL MCH (27-31) pg MCHC (32-36) % Plt Count (150-400) K/uL Neut % (Auto) (36-66) % Lymph % (Auto) (24-44) % Sherman % (Auto) (2-6) % Eos % (Auto) (2-4) % Baso % (Auto) (0-1) % PT 26.3 H (9.5-12.0) sec INR 2.57 H (0.80-1.20) APTT (27.0-36.0) sec Sodium (140-148) mmol/L Potassium (3.6-5.2) mmol/L Chloride (100-108) mmol/L Carbon Dioxide (21-32) mmol/L Anion Gap (5.0-14.0) mmol/L BUN (7-18) mg/dL Creatinine (0.6-1.0) mg/dL Est Cr Clr Drug Dosing mL/min Estimated GFR (MDRD) (>60) Glucose (74-106) mg/dL Calcium (8.5-10.1) mg/dL Total Bilirubin (0.2-1.0) mg/dL AST (15-37) U/L ALT (12-78) U/L Alkaline Phosphatase (46-116) U/L Troponin I 0.047 (0.000-0.056) ng/mL Total Protein (6.4-8.2) g/dL Albumin (3.4-5.0) g/dL Globulin (2.3-3.5) g/dL Albumin/Globulin Ratio (1.2-2.2) Meds: Medications Generic Name Dose Route Start Last Admin Trade Name Freq PRN Reason Stop Dose Admin Sodium Chloride 1,000 mls @ 200 mls/hr 12/10/19 13:45 Normal Saline IV ASDIRECTED RAMANA Discontinued Medications Generic Name Dose Route Start Last Admin Trade Name Freq PRN Reason Stop Dose Admin Sodium Chloride 100 mls @ 3.5 mls/sec 12/10/19 15:30 12/10/19 16:01 Normal Saline IV 12/10/19 15:31 3.5 mls/sec ASDIRECTED RAMNAA Administration Iopamidol 100 ml 12/10/19 15:30 12/10/19 16:00 Isovue-370 (76%) IV 12/10/19 15:31 100 ml . DIRECTED RAMANA Administration Sodium Chloride 10 ml 12/10/19 15:19 12/10/19 16:00 Saline Flush FLUSH 12/10/19 15:20 10 ml ONETIME ONE Administration Departure - Departure Time of Disposition: 17:10 Disposition: Home, Self-Care 01 Condition: Fair Clinical Impression: History of pulmonary embolus (PE), History of Coumadin therapy Referrals: PCP,None [Primary Care Provider] - Forms: ED Department Discharge Care Plan Goals: continue lovenox for 2 more days at outpt. coumadin 5mg daily inr on thur am. rtc if further problems. Sepsis Event Note (ED) - Evaluation Sepsis Screening Result: No Definite Risk - Focused Exam Vital Signs: Vital Signs Temp Temp Pulse Resp BP Pulse Ox 12/10/19 15:44 36.2 C 94 15 160/71 H 96 12/10/19 12:54 35.7 C L 98 14 158/89 H 95 12/10/19 12:19 35.7 C L 98 19 146/78 H 97 - My Orders Last 24 Hours: My Active Orders 12/10/19 13:45 Sodium Chloride 0.9% [Normal Saline] 1,000 ml IV ASDIRECTED - Assessment/Plan Last 24 Hours: My Active Orders 12/10/19 13:45 Sodium Chloride 0.9% [Normal Saline] 1,000 ml IV ASDIRECTED
--- NOTE | 2019-12-10 14:43 | CR ---
CHEST: 2 view CLINICAL HISTORY:History of PE COMPARISON:CT 12/04/2019 FINDINGS: The heart size, pulmonary vascularity and hilar structures are normal. No infiltrate effusion or pneumothorax is seen. There are atherosclerotic changes in the aorta. IMPRESSION: No acute cardiopulmonary process.
[2019-12-10] MEDS ORDERED: Sodium Chloride 0.9% 10 ML Syringe FLUSH ONE (15:19)
[2019-12-10] MEDS ORDERED: Sodium Chloride 0.9% 100 ML IV SCH (15:30)
[2019-12-10] MEDS ORDERED: Iopamidol 755 Mg/ML 100 ML Bottle IV SCH (15:30)
--- NOTE | 2019-12-10 16:40 | CRLCT ---
INDICATION: Chest pain and shortness of breath. Recent history of pulmonary embolism. TECHNIQUE: CT chest PE was acquired with 100 cc Isovue 370 IV contrast. COMPARISON: December 04 1019. FINDINGS: Heart and vasculature: Again demonstrated is a significant burden of large bilateral pulmonary emboli including at the bifurcations of the right and left main pulmonary emboli. The previously seen saddle embolus is no longer present. The emboli in the periphery also appear very slightly improved. Heart size is normal. Thoracic aorta and pulmonary artery are normal in caliber.No sign of right heart strain. Lungs and pleural: Small pleural-based opacity in the lateral right middle lobe could represent a small infarct. This was not present on the prior exam. Left basilar atelectasis has increased. Remainder the lungs are clear. No pleural effusions, pleural thickening, or pneumothorax. Lymph nodes/mediastinum: No mediastinal, hilar, or axillary adenopathy. Thyroid gland is normal. Chest wall: No masses. Upper abdomen: Normal. Bones: Unremarkable for age. IMPRESSION: 1. Significant burden of large bilateral acute pulmonary emboli persists but has very slightly improved since the prior exam from 6 days ago. 2. Possible new very small peripheral pulmonary infarct in the right middle lobe. 3. Increased left basilar atelectasis. 4. No other significant findings or changes. Dictated by Johnathan Merrill MD @ 12/10/2019 4:39:00 PM Please note that all CT scans at this facility use dose modulation, iterative reconstruction, and/or weight-based dosing when appropriate to reduce radiation dose to as low as reasonably achievable. Dictated by: Johnathan Merrill MD @ 12/10/2019 16:39:08 (Electronically Signed)
== END 2019-12-10 17:38 | disposition home or self-care (01) ==
LOC: JP.ED 12:03
DX: Z86.711 Personal history of pulmonary embolism (principal); Z79.01 Long term (current) use of anticoagulants; E78.00 Pure hypercholesterolemia, unspecified; I10 Essential (primary) hypertension; J44.9 Chronic obstructive pulmonary disease, unspecified; F32.9 Major depressive disorder, single episode, unspecified; F41.0 Panic disorder [episodic paroxysmal anxiety]; E66.9 Obesity, unspecified; Z87.891 Personal history of nicotine dependence; Z88.1 Allergy status to other antibiotic agents; Z88.0 Allergy status to penicillin; Z79.899 Other long term (current) drug therapy; Z68.26 Body mass index [BMI] 26.0-26.9, adult
CPT/HCPCS: 36415; 71046; 71275; 80053; 84484; 85025; 85610; 85730; 93005; 99284; J7050; Q9967; 93010

== ENCOUNTER 2021-12-06 10:20 | Emergency (ER) | payer MEDICARE ==
[2021-12-06] MEDS ORDERED: Albuterol/Ipratropium 3.0-0.5 MG/3 ML Neb Soln NEB ONE (10:58)
[2021-12-06 11:41] LABS: ESTIMATED GFR 52 mL/min (>60); TROPONIN I HIGH SENSITIVITY 11.8 pg/mL (<=60.3)
[2021-12-08 13:10] LABS: BABESIA MICROTI IGG <1:10 (Neg:<1:10); BABESIA MICROTI IGM <1:10 (Neg:<1:10)
[2021-12-10 13:11] LABS: HGE IGG TITER Negative (Neg:<1:64); HGE IGM TITER Negative (Neg:<1:20)
[2021-12-11 15:12] LABS: IGG P18 AB. Absent (.); IGG P23 AB. Absent (.); IGG P28 AB. Absent (.); IGG P30 AB. Absent (.); IGG P39 AB. Absent (.); IGG P41 AB. Absent (.); IGG P45 AB. Absent (.); IGG P58 AB. Absent (.); IGG P66 AB. Absent (.); IGG P93 AB. Absent (.); IGM P23 AB. Absent (.); IGM P39 AB. Absent (.); IGM P41 AB. Absent (.); LYME IGG LB INTERP. Negative (.); LYME IGM LB INTERP. Negative (.)
== END 2021-12-06 13:25 | disposition left against medical advice (07) ==
LOC: JP.ED 10:20
DX: R06.02 Shortness of breath (principal); E78.00 Pure hypercholesterolemia, unspecified; J44.9 Chronic obstructive pulmonary disease, unspecified; I10 Essential (primary) hypertension; M19.90 Unspecified osteoarthritis, unspecified site; E66.9 Obesity, unspecified; Z68.31 Body mass index [BMI] 31.0-31.9, adult; Z88.0 Allergy status to penicillin; Z79.899 Other long term (current) drug therapy; Z53.8 Procedure and treatment not carried out for other reasons
CPT/HCPCS: 36415; 71046; 71046-26; 80053; 83605; 83880; 84484; 85025; 85379; 86617; 86617-59; 86618; 86666; 86753; 93005; 94640; 99285; J7620

== ENCOUNTER 2021-12-06 14:03 | Emergency (ER) | payer MEDICARE ==
[2021-12-06] MEDS ORDERED: Sodium Chloride 0.9% 10 ML Syringe FLUSH PRN (14:12)
[2021-12-06] MEDS ORDERED: Sodium Chloride 0.9% 1,000 ML IV SCH (14:15)
[2021-12-06] MEDS ORDERED: Iopamidol 612 MG/ML 100 ML Bottle IV SCH (14:45)
[2021-12-06] MEDS ORDERED: Sodium Chloride 0.9% 75 ML IV SCH (14:45)
[2021-12-06] MEDS ORDERED: Doxycycline 100 MG in Sodium Chloride 0.9% 100 ML IV ONE (17:09)
== END 2021-12-06 18:48 | disposition home or self-care (01) ==
LOC: JP.ED 14:03
DX: A69.20 Lyme disease, unspecified (principal); E78.00 Pure hypercholesterolemia, unspecified; I10 Essential (primary) hypertension; J44.9 Chronic obstructive pulmonary disease, unspecified; E66.9 Obesity, unspecified; Z88.0 Allergy status to penicillin; Z88.1 Allergy status to other antibiotic agents; Z79.899 Other long term (current) drug therapy; Z68.32 Body mass index [BMI] 32.0-32.9, adult
CPT/HCPCS: 36415; 71046; 71275; 80053; 83605; 83880; 84484; 85025; 85379; 86617; 86618; 86666; 86753; 93005; 94640; 96361; 96365; 99285; J3490; J7030; Q9967; J7620

== ENCOUNTER 2024-02-23 07:55 | Day surgery (SDC) | payer MEDICARE ==
[2024-02-23] MEDS ORDERED: fentaNYL 50 MCG/ML SDV ONE (08:35)
[2024-02-23] MEDS ORDERED: Propofol 200 MG/20 ML SDV ONE (08:35)
[2024-02-23] MEDS: Sodium Chloride 0.9% 1,000 ML IV SCH (08:36)
== END 2024-02-23 12:36 | disposition home or self-care (01) ==
LOC: JP.SDS 07:55
PROVIDERS: ATTEND Surgery
DX: Z12.11 Encounter for screening for malignant neoplasm of colon (principal); D12.2 Benign neoplasm of ascending colon; I10 Essential (primary) hypertension; E78.5 Hyperlipidemia, unspecified; E66.9 Obesity, unspecified
CPT/HCPCS: 00811; 45380; 88305; J2704; J3010; J7030